=== PATIENT | male | born 1965 | race Caucasian/White ===

== ENCOUNTER 2018-09-03 12:56 | Outpatient (REF) | payer BC, SELFPAY ==
--- NOTE | 2018-09-03 11:30 | SKI_PTH ---
PATIENT: Orion Mccall LOC: [facility] U#:[id number] AGE/SX: 53/M ROOM: RE09/03/[address]: Killian Segovia DO : 1965 BED: DIS: 09/03/2018 SPEC #: [id number] RECD: 09/03/18 13:01 STATUS: TING REMallory #: [id number] SAMUEL: 09/03/18 11:[address]: Killian Segovia DEPT: Surgical Specimen RECD BY: Maite Hobbs Tissues: 1 - SKIN BIOPSY(SHAVE/PUNCH) Procedures: SKIN LEVEL 4 Comments: [id number]
== END 2018-09-03 13:16 ==
LOC: LBN 12:56
PROVIDERS: PCP Emergency Medicine; Visit Provider Emergency Medicine
DX: L82.1 Other seborrheic keratosis (principal)
CPT/HCPCS: 88305

== ENCOUNTER 2019-04-03 11:21 | Outpatient (CLI) | payer BC, SELFPAY ==
[2019-04-03 14:22] LABS: Cholesterol 140 mg/dL (50-200); HDL Cholesterol 36 mg/dL (40-60); LDL CHOLESTEROL 91 mg/dL (<100); Triglyceride 85 mg/dL (30-150)
[2019-04-03 14:30] LABS: Hemoglobin A1C 5.9 % (4.5-6.2)
== END 2019-04-03 11:41 ==
PROVIDERS: PCP Emergency Medicine; Visit Provider Emergency Medicine
DX: E66.9 Obesity, unspecified (principal); E11.9 Type 2 diabetes mellitus without complications
CPT/HCPCS: 36415; 80061; 83721; 83036

== ENCOUNTER 2019-08-04 08:12 | Day surgery (SDC) | payer BC, SELFPAY ==
--- NOTE | 2019-08-04 06:36 | W.COLOREPORT ---
Date of service: 08/04/19 Time of Service: 09:11 Colonoscopy Report Date of procedure: 08/04/19 Pre-op diagnosis general: Hx of polyps Post-op diagnosis procedure note: same Procedure: Colonoscopy with polypectomy Surgeon: Rosalee Wolf Anesthesia proc note operative: other (General/ ASA 2/John Cleary, GADIEL) Estimated blood loss (mL): 3 Pathology: other (cecal P, Ascending P x3, Trannsverse P, Descending P) Complications: None Disposition: same day Indications: Mr. Mccall is a pleasant 54 year old male who was seen for a colonoscopy. He had a colonoscopy in 2016 and had a tubullovillous adenoma. Risks, benefits and complications have been reviewed. Complications include but are not limited to bleeding, pain, perforation, missed small lesion/polyp, sore throat, aspiration and adverse reaction to the medications. Questions were entertained and answered to their satisfaction and they wished to proceed. No guarantees were given or implied. Prep: Miralax/Dulcolax Procedure Start Time: :11 Procedure End Time: :43 Retraction Time: 23 minutes Findings: Multiple small polyps and mild diverticulosis of the descending and sigmoid colon Procedure Description: After informed consent was obtained the patient was taken to the procedure room and placed in a left decubitous position. Monitors were applied and a time out was done. The patients name, date of , procedure, allergies to medications and metal in their body was reviewed. The patient was then sedated. Once sedated and comfortable a rectal exam was done. External exam was normal. Internal exam revealed a normal sphincter tone and no palpable masses. I was unable to feel the prostate. The scope was then introduced and retro-flexed. No internal hemorrhoids, polyps or masses were identified. The scope was then advanced to the cecum without difficulty. The TI and appendiceal orifice were identified. The prep was adequate. The scope was then slowly retracted over 23 minutes back into the rectum. Polyps were removed with cold forceps in the cecum, ascending X3, transverse and descending colon. There was mild diverticulosis noted of the descending and sigmoid colon. The scope was removed and the patient was woken up and taken back to Same day surgery in stable condition. The patient tolerated the procedure well and there were no immediate complications. Follow up: The patient should follow up in 3 years unless they develop changes in bowel habits or other new gastrointestinal complaints.
--- NOTE | 2019-08-04 06:38 | W.PM.DSUDISC ---
Discharge Plan Disposition Patient Disposition: HOME Condition: Good Discharge Details Reason For Visit: Colonoscopy Attending Provider: Rosalee Wolf Primary Care Provider: Killian Segovia Home Meds and New Rx's Prescriptions: Continued indomethacin 50 MG capsule 50 mg PO TID PRNQty: 30 RF: 2 allopurinol 100 mg tablet 100 mg PO DAILY Qty: 90 RF: 3 citalopram 20 mg tablet 20 mg PO DAILY Qty: 90 RF: 3 triamcinolone acetonide 0.5 % cream 1 applic Topical BID PRN Qty: 3 RF: 3 Discontinued polyethylene glycol 3350 17 gram/dose powder 238 g PO ONCE Qty: 238 RF: 0 bisacodyl [Dulcolax (bisacodyl)] 5 mg tablet,delayed release (DR/EC) 5 mg PO ONCE Qty: 4 RF: 0 Discharge Instructions Instructions: Colonoscopy (DC), Diverticulosis (DC), Colorectal Polyps (GEN) Additional Instructions: Findings: Multiple small polyps Diverticulosis Follow up: 3 years Please call if you develop: fevers >101.5 Nausea or Vomiting Abdominal pain that is not transient DAY SURGERY UNIT POST ENDOSCOPY INSTRUCTIONS 1. Because there will be medication in your system for the next 24 hours, you may feel a little sleepy. Your coordination will be affected. Therefore: a. Do not drive or operate dangerous equipment for 24 hours. b. Do not drink alcohol beverages for 24 hours (not even beer). c. Plan to go home and rest for the day. 2. Generally there are no restrictions on your activity after a day or so has gone by, but you may feel a bit fatigued for a few days. 3 After you arrive home you may have a light meal and return to a normal diet as you can tolerate it without feeling sick to your stomach. 4. After surgery, you may feel pain or discomfort. This should be only transient, but if it persists please contact your doctor. 5. If there are any questions regarding the findings of your procedure, please feel free to contact your doctor. 6. If you are unable to contact your doctor with a problem, contact the hospital at [phone]. 7. Continue all your regular medications unless directed otherwise. I understand the above instructions and have no questions. Signature of Patient or Responsible Adult Escort Date/Time Name of Responsible Adult Escort Signature of Nurse Date/Time Activity:: Activity as Tolerated Diet:: High Fiber diet Discharge Orders Discharge Orders: Discharge Order (Routine); Ordered 08/04/19 Ordered By: Rosalee Wolf DS: Diagnosis Discharge Diagnosis (1) Tubulovillous adenoma: Status: Chronic (2) S/P colonoscopy: Status: Acute
[2019-08-04 08:20] VITALS: BP 136/77; PULSE 64; RESP 16; TEMP 36.2; O2SAT 96
--- NOTE | 2019-08-04 08:35 | HOME_ITS ---
Home Ventilator Equipment Home care company [employer] Reason: Obstructive Sleep Apnea Make: Respironics Model: REMStar Mask type: Face mask Mask size: Large Mode: CPAP Settings: Max/min 18/10 Oxygen bleed in (lpm): 0 Condition: Good Date last checked: 08/04/19 Year of last sleep study: Compliance Daily Comments:
[2019-08-04] MEDS: Lactated Ringers 1,000 ML 80 ML IV (08:50)
--- NOTE | 2019-08-04 09:13 | BOWEL_PTH ---
PATIENT: Orion Mccall LOC: [facility] U#:[id number] AGE/SX: 54/M ROOM: RE08/04/[address]: Rosalee Wolf MD : 1965 BED: DIS: 08/04/2019 SPEC #: [id number] RECD: 08/04/19 12:53 STATUS: TING RE #: [id number] SAMUEL: 08/04/19 09:[address]: Rosalee Wolf DEPT: Surgical Specimen RECD BY: Maite Hobbs ENTERED: 08/04/19 12:55 SP TYPE: Bowel OTHR DR: Killian Segovia DO Tissues: 1 - BIOPSY BOWEL 2 - BIOPSY BOWEL 3 - BIOPSY BOWEL 4 - BIOPSY BOWEL Procedures: GROSS AND MICRO LEVEL 4 Comments: [id number]
[2019-08-04 09:50] VITALS: BP 119/70; PULSE 64; RESP 16; TEMP 36.6; O2SAT 98
== END 2019-08-04 11:10 | disposition home or self-care (01) ==
LOC: SUR 08:12
PROVIDERS: PCP Emergency Medicine; Visit Provider Surgery
PROC: 0DJD8ZZ Inspection of Lower Intestinal Tract, Via Natural or Artificial Opening Endoscopic (ICD-10-PCS; CPT 45378; principal; 2019-08-04 09:15)
DX: Z12.11 Encounter for screening for malignant neoplasm of colon (principal); Z86.010 Personal history of colon polyps; D12.2 Benign neoplasm of ascending colon; D12.3 Benign neoplasm of transverse colon; D12.4 Benign neoplasm of descending colon; D12.5 Benign neoplasm of sigmoid colon; K57.30 Diverticulosis of large intestine without perforation or abscess without bleeding; G47.33 Obstructive sleep apnea (adult) (pediatric)
CPT/HCPCS: 45380; 88305

== ENCOUNTER 2021-02-23 16:17 | Outpatient (REF) | payer BC, SELFPAY ==
[2021-02-23 22:32] LABS: ALT 42 U/L (16-63); AST 19 U/L (15-37); Albumin 4.5 g/dL (3.4-5.0); Alkaline Phosphatase 92 U/L (46-116); Anion Gap 9.1 mmol/L (3-11); BUN 19 mg/dL (7-18); Bilirubin, Total 1.5 mg/dL (0.2-1.0); CO2 31.9 mmol/L (21.0-32.0); Calcium 9.3 mg/dL (8.5-10.1); Calculated LDL 82 mg/dL (<100); Chloride 103 mmol/L (98-107); Cholesterol 144 mg/dL (<200); Glucose 99 mg/dL (74-106); HDL Cholesterol 42 mg/dL (40-60); Potassium 4.4 mmol/L (3.5-5.1); Sodium 144 mmol/L (136-145); Total Protein 7.4 g/dL (6.4-8.2); Triglyceride 101 mg/dL (<150)
[2021-02-24 17:32] LABS: PSA, Screening 1.3 ng/mL (0.0-3.5)
== END 2021-02-23 16:18 | disposition home or self-care (01) ==
LOC: LBN 16:17
PROVIDERS: PCP Emergency Medicine; Visit Provider Emergency Medicine
DX: K76.0 Fatty (change of) liver, not elsewhere classified (principal); E66.9 Obesity, unspecified; Z12.5 Encounter for screening for malignant neoplasm of prostate
CPT/HCPCS: 80053; 80061; 84153

== ENCOUNTER 2021-09-13 21:15 | Outpatient (REF) | payer BC, SELFPAY ==
[2021-09-15 10:33] LABS: COVID-19 RT-PCR UVMMC Result Negative (Negative)
== END 2021-09-13 21:16 | disposition home or self-care (01) ==
LOC: LBN 21:15
PROVIDERS: PCP Emergency Medicine; Visit Provider Emergency Medicine
DX: Z20.822 Contact with and (suspected) exposure to COVID-19 (principal)
CPT/HCPCS: U0003

== ENCOUNTER 2022-02-28 18:06 | Outpatient (REF) | payer BC, SELFPAY ==
--- NOTE | 2022-02-28 16:00 | SKI_PTH ---
PATIENT: Orion Mccall LOC: [facility] U#:[id number] AGE/SX: 57/M ROOM: RE02/28/[address]: Killian Segovia DO : 1965 BED: DIS: 02/28/2022 SPEC #: [id number] RECD: 02/28/22 18:18 STATUS: TING REQ #: [id number] SAMUEL: 02/28/22 16:[address]: Killian Segovia DEPT: Surgical Specimen RECD BY: Maite Hobbs ENTERED: 02/28/22 18:19 SP TYPE: ADAN GAMBLE DR: Autumn Connor Tissues: 1 - SKIN BIOPSY(SHAVE/PUNCH) Procedures: SKIN LEVEL 4 Comments: [id number]
== END 2022-02-28 18:07 | disposition home or self-care (01) ==
LOC: LBN 18:06
PROVIDERS: PCP Family Medicine; Visit Provider Emergency Medicine
DX: D23.5 Other benign neoplasm of skin of trunk (principal)
CPT/HCPCS: 88305

== ENCOUNTER 2022-08-04 01:59 | Outpatient (CLI) | payer BC, SELFPAY ==
--- OUTSIDE RECORDS SUMMARY | 2022-08-04 02:04 | XMS_ITS | Encounter Summary ---
:1965 Author Organization [facility] Address [address] [place] [address] Care Team Providers Name Role Phone Killian Segovia DO Primary Care Provider Encounter Details Date Type Department Care Team Description 08/04/2019 Hospital Encounter [facility], Provider, [facility] [address] [facility] [phone] [place] [address] (Work) [phone] Social History Tobacco Use Types Packs/Day Years Used Date Never Assessed Sex Assigned at Date Recorded Not on file documented as of this encounter Discharge Disposition Disposition Code Departure Means Destination Home or Self Fpc documented in this encounter Plan of Treatment Not on filedocumented as of this encounter Visit Diagnoses Not on filedocumented in this encounter Care Teams Bartenders Relationship Specialty Start Date End Date Killian Segovia DO PCP - General 12/03/12 02/16/[address] [place]ET [place]OTH[place] [id number] documented as of this encounter
--- OUTSIDE RECORDS SUMMARY | 2022-08-04 02:04 | XMS_ITS | Encounter Summary ---
:1965 [place] [address] Care Team Providers Name Role Phone Killian Segovia DO Primary Care Provider Reason for Visit Auth/Cert Specialty Diagnoses / Procedures Referred By Contact Refer red To Contact Diagnoses Asymptomatic varicose veins of unspecified lower extremity Varicose veins of unspecified lower extremity with pain varicose vein Procedures PRO ENDOVENOUS RF, 1ST VEIN PRO PHLEB VEINS - EXTREM - TO 20 ENDOVENOUS ABLATION THERAPY OF INCOMPETENT VEIN, EXTREMITY, FIRST VEIN STAB PHLEBECTOMY ASHLEY VEINS 1 EXTREMITY 10-20 INCISIONS Referral ID Status Reason Start Date Expiration Date Visits Requ ested Visits Authorized [id number] 1 Encounter Details Date Type Department Care Team Description 09/29/2016 Surgery Main Operating Room Jose Alejandro rn D, MD ENDOVENOUS ABLATION [facility] TH[facility]APY OF INCOMPETENT Hospital VEIN, EXTREMITY, [facility] VASCULAR SURG ALVINA VEIN (WRVU 5.3) [place] [address] [place] [address] [phone] Social History Tobacco Use Types Packs/Day Years Used Date Never Smoker Smokeless Tobacco: Never Used Alcohol Use Standard Drinks/Week Comments Yes 6 (1 standard drink = 0.6 oz pure alcoho l) Sex Assigned at Date Recorded Not on file documented as of this encounter Last Filed Vital Signs Vital Sign Reading Time Taken Comments Blood Pressure 150/87 09/29/2016 11:00 AM EST Pulse 80 09/29/2016 11:00 AM EST Temperature 36.3 ??C (97.3 ??F) 09/29/2016 10:22 AM EST Respiratory Rate 22 09/29/2016 11:00 AM EST Oxygen Saturation 97% 09/29/2016 11:00 AM EST Inhaled Oxygen Concentration - - Weight 139.3 kg (307 lb 1.6 oz) 09/29/2016 7:21 AM EST Height 182.9 cm (6') 09/29/2016 7:21 AM EST Body Mass Index 41.65 09/29/2016 7:21 AM EST documented in this encounter Discharge Instructions Discharge Elvia Black RN - 09/29/2016 10:40 AM EST POST ANESTHESIA INSTRUCTIONS Go home, rest, use caution on stairs. Change positions slowly. Do not smoke if you are alone. Diet light to regular as tolerated today. If nausea occurs start with clear liquids and progress slowly. No driving, operating machinery, alcoholic beverages and no important decisions for 24 hours. Monitor IV site for signs and symptoms of infection: increasing redness, swelling, foul drainage, ifoccurs contact M.D. Patients who have had endotrachial tubes (this tube, used by anesthesia department, is passed down your throat after you are asleep, to ensure safe air passage during your operation). A sore throat is normal due to the tube. Cold liquids or soothing lozenges will help ease the discomfort. The generalized muscle aches are due to the medication given to you just before the tube is inserted. As the medication wears off, you may develop muscle soreness, which usually goes away in 12-24 hours. Patient InstructionsRoshni Villareal MD - 09/29/2016 10:28 AM EST Instructions Following Varicose Vein Surgery Wound Care: Bedrest for 4-6 hours following surgery once you get home with legs at level of heart orelevated. Then please get out of bed and walk. Keep on KERON wraps for the next 2 days (feel free to take off KERON if it too tight and change as needed). No bathing for 2 days. Keep legs elevated or at level of heart as much as possible over the next 3-5 days. Walk as you would normally. Sunday you should take off KERON wrap and gauze, may shower, and pat dry immediately following. The incisions are closed with disappearing suture and steri strips. The strips will fall off in the shower on their own. You may wash the incisions with soap and water and pat dry. Activity: YOU SHOULD WALK STARTING THE EVENING AFTER SURGERY. When you are sitting try to prop leg(s) up on pillows and/or lie down as much as possible (thsi will limit swelling). No vigorous activity (such as jogging) for at least 2-4 weeks or until cleared to do so at you follow-up appointment. Call Doctor for: Please call if you notice worsening redness or drainage from incision(s) lasting longer than 5 days after your surgery, any foul-smelling drainage from the incision, pain not controlled by pain medications, or for any fevers greater than 101.3 F. Pain Medication: No driving for 8 hours after any dose of opioid pain medication if one was presecibed for you. You may use ibuprofen (motrin, advil) in addition to this medication if your pain is not totally controlled. Follow-up: You will have a follow-up appointment scheduled with Haritha Colón RN/Messi Alejandro MD in 4 weeks. Appointment will be mailed to you and/or you may be called with a date and time from the clinic. If you do not hear from the clinic within 1 week of your appointment please call to confirm date and time of your appointment. Please put sunscreen over the incisions if in the sun; the incisions will riojas differently than the rest of your skin and may become dark if you do not apply sunscreen. We will see you Sunday at 4pm for your ultrasound study. If you have any bleeding through the dressings please take down dressing and replace KERON wrap. For any problems or questions please call [phone] For issues on weeknights after 5pm and weekends please call [phone] and ask for the Vascular Fellow explosion welder. AGUSTIN Reyes, chief engineer's helper Nurse Clinician documented in this encounter Medications at Time of Discharge Medication Sig Dispensed Refills Start Date End Date allopurinol (ZYLOPRIM) Take 100 mg by mouth 0 100 mg Tablet daily. citalopram (CELEXA) 10 Take 10 mg by mouth 0 mg Tablet daily. triamcinolone (KENALOG) Apply topically 2 0 0.1 % Cream times daily. indomethacin (INDOCIN) 0 08/23/2005 50 mg capsule acetaminophen (TYLENOL) Take 2 tablets by 100 tablet 2 09/2909/29/2017 325 mg Tablet mouth every 4 hours as needed for Pain. oxyCODONE (ROXICODONE) 5 Take 1 tablet by 15 tablet 0 09/2910/26/2016 mg Tablet mouth every 4 hours as needed for Pain. documented as of this encounter H&P Notes Roshni Villareal MD - 09/29/2016 7:46 AM EST H&P Update Please see Dr. Alejandro's clinic note from 09/20/16. In brief this is a healthy 51 year old male with left lower extremity varicose veins, that cause himaching/throbbing. 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 No hx of DVT or family clotting disorder. Duplex shows reflux in the left GSV. Physical Exam Vitals: 09/29/16 0721 BP: 129/85 Pulse: 61 Resp: 16 Temp: 36.8 ??C (98.2 ??F) Genl: well appearing male, obese Cards: RRR normal S1 S2 Pulm: lungs clear Ext: warm LLE: protuberant varicosities at medial knee/calf, palpable GSV No erythema Plan for Left GSV ablation and stab phlebectomy. Risks include bleeding, infection, injury to surrounding structures, DVT, scars, bruising, recurrence of varicose veins. Pt understands and wishes to proceed. documented in this encounter Miscellaneous Notes Op Note - Roshni Villareal MD - 09/29/2016 10:20 AM EST [facility] [place] Patient Name: Orion Santo : [id number] MR#: [id number] Case Date: 09/29/2016 Surgeon: Surgeon(s) and Role: * Messi Alejandro MD - Primary * Roshni Villareal MD - Resident-Surgeon Eliezer Preoperative diagnosis: Left lower extremity varicose veins Morbid obesity (BMI 41.65) Obstructive sleep apnea Postoperative diagnosis: Left lower extremity varicose veins sp L GSV ablation and stab phlebectomy Morbid obesity (BMI 41.65) Obstructive sleep apnea Procedure(s): 1. ENDOVENOUS ABLATION THERAPY OF INCOMPETENT VEIN, EXTREMITY, FIRST VEIN 2. STAB PHLEBECTOMY ASHLEY VEINS 1 EXTREMITY <10 INCISIONS Findings: Very large diameter tortuous varicosities below the knee GSV ablated using RF ablation, ablation confirmed with US and no DVT seen in the femoral vein Varicosities at proximal calf/distal thigh excised with stab phlebectomy (6 stabs) Anesthesia: General 50cc Tumescent used Estimated Blood Loss: 40cc Specimens removed during surgery: None Drains: none Surgical Closure: Primary Closure - closure of ALL tissue levels during the original surgery regardless of wires, wickes, drains, or other devices extruding through the incision Disposition: awakened from anesthesia, extubated and taken to the recovery room in a stable condition, having suffered no apparent untoward event. Condition: doing well without problems (Please see the Surgical Encounter Summary for any Implant and Specimen details pertinent to this patient.) HPI/Surgical Indications: 51M with reflux in left GSV and protuberant varicosities. No relief with compression stockings. Varicose veins associated w pain/swelling/throbbing. Procedure Description: The patient was properly identified in the pre-operative holding area. After discussions of the risks and benefits, operative consent was obtained. The patient was brought to the operating room. The patient was prepped and draped in the usual sterile fashion. A time-out was performed by the attending surgeon confirming the patient, the intended procedure, the side of intervention and equipment needed. General anesthesia was induced. Pre operative ancef was administered. ? Under ultrasound guidance the left great saphenous vein was identified along its course from the saphenofemoral junction to below the knee. A location approximately at the level just below the knee waschosen for accessing the great saphenous vein via micropuncture kit; the vein was cannulated with a wire over which a 7 F sheath was introduced. A garrido wire was advanced to the saphenofemoral junction. A Tumescent solution was injected along the path of the GSV below the skin and tracking along the fascial layer. The entire GSV was noted to lay at least 1 cm below the skin. The VNUS catheter advanced to the level of 2.5 cm below the saphenofemoral junction within the great saphenous vein. The VNUSdevice was the utilized for RF ablation per standard protocol, with two pulses at the level just below the saphenofemoral junction, and at two additional points distally along the course of the GSV. Total treatment length of approximately 30 cm and 5 cycles. Completion ultrasound revealed no flow in the GSV, and a compressible CFV with normal augmentation. The GSV sheath access was removed and pressure held. ? We then turned our attention to the previously marked varicosity clusters below the knee. Incisions were made on the left calf and thigh with an 11 blade (a total of 6 stabs made). The veins were followed along their course with a snap and then avulsed or tied with 3-0 vicryl. Hemostasis achieved withlocal pressure. The incisions were closed with 4-0 monocryl and overlying steri- strips. The leg was then wrapped with a kerlex and KERON wrap from the foot to the thigh. ? Dr. Alejandro was scrubbed and present for all critical portions of the case. There were no complications. ?? Infection Bundle used? N/A (pre op ancef given) Associated attestation - Messi Alejandro MD - 09/29/2016 10:29 AM EST Attestation: Case Date: 09/29/2016 I was present and I participated during the entire procedure (does not need to include opening and closing). Messi Alejandro MD 09/29/2016 documented in this encounter Plan of Treatment Not on filedocumented as of this encounter Procedures Procedure Name Priority Date/Time Associated Diagnosis Comme nts STAB PHLEBECTOMY ASHLEY Routine 09/29/2016 9:54 AM Varicose vein of leg VEINS 1 EXTREMITY <10 EST Varicose veins of l eg INCISIONS with pain, unspecified laterality STAB PHLEBECTOMY ASHLEY 09/29/2016 8:23 AM Varicose vein of leg VEINS 1 EXTREMITY <10 EST Varicose veins of l eg INCISIONS (WRVU *) with pain, unspecified laterality ENDOVENOUS ABLATION 09/29/2016 8:23 AM Varicose vein of leg THERAPY OF INCOMPETENT EST Varicose veins of leg VEIN, EXTREMITY, FIRST with pain, unspeci fied VEIN (WRVU 5.3) laterality documented in this encounter Results Duplex for DVT, Leg, Unilat (10/02/2016 4:00 PM EST) Component Value Ref Test Analysis Performed At [facility] Range Method Time Signature VB Text Department: Vascular Surgery Lab [facility] Report Patient: [id number] (ORION SANTO) CPT: 61641 ICD10: I82.812;I83.812 Referring Physician: MESSI ALEJANDRO ?? Phone: Indications: LEFT venous ins ufficiency, s/p VNUS (09/29/2016), ? DVT/successful GSV ablation ICD10 Diagnosis Code: I83.812, I82.812 LEFT: The great saphenous vein is thromb osed from the level of the knee to the saphenofemoral junction without evidence of extension into t he deep system (CFV). Otherwise, patent common femoral vein and popliteal vein wit h spontaneous, respirophasic Doppler wavefo neil that respond normally to augmentation maneuvers. The common femoral vein, femoral vein th rough the thigh and popliteal vein are fully compressible. Interpretation: LEFT: Occlusive superficial vein (GSV) thrombus without evidence of extension into the deep system (CFV). No evidence of femoral-popliteal deep venous thrombosis. Findings consistent with successful ablation of the GSV. Comparison: ??No previous study in our vascular lab da tabase for comparison. Electronically Signed by: VANESSA BUTTERFIELD on 2016-10-02 07:36: 46 PM VB Text End of Report [facility] Report Specimen (Source) Anatomical Collection Method Collection Time Re ceived Time Location / / Volume Laterality 10/02/2016 4:00 PM EST Messi Alejandro MD VASCULAR ORDERABLES Performing Organization Address City/State/ZIP Code Phon e Number [facility] documented in this encounter Visit Diagnoses Diagnosis Varicose veins of leg with pain, unspeci fied laterality Varicose veins of leg with pain, left Varicose veins of leg with pain, unspeci fied laterality documented in this encounter Administered Medications Inactive Administered Medications - up to 3 most recent administrations Medication Order MAR Action Action Date Dose Rate Site flu vacc (5-64 yrs) (PF) Given 09/29/2016 11:09 AM 0.5 mLs Left Deltoid (AFLURIA) IM injection 0.5 EST mL 0.5 mL, Intramuscular, PRIOR TO DISCHARGE, 1 dose, Starting on Sun09/29/16 at 1115, Until Sun09/29/16 at 1109, Per Protocol, Recovery (Recovery-Hospital Unit), STAT lactated ringers infusion 1,000 New Bag 09/29/2016 8:03 AM EST 1,000 mLs 100 mL/hr mL 1,000 mL, at 100 mL/hr, Intravenous, CONTINUOUS, Starting on Sun09/29/16 at 0730, Until Sun09/29/16 at 1646, Day of Surgery (Day of Procedure) oxyCODONE (ROXICODONE) immediate release tablet Given 09/29/2016 2:04 PM EST 5 mg 5 mg 5 mg, Oral, EVERY 4 HOURS PRN, Starting on Sun09/29/16 at 1030, Until Sun09/29/16 at 1848, Pain, Routine documented in this encounter Active and Recently Administered Medications Times are shown in EST. Scheduled Medication Order 09/27/2016 09/28/2016 09/29/2016 ceFAZolin (ANCEF) 3g in dextrose 5% 100 mL (COMPLETED) 0831 (Given - Provider: Bryce Cedillo MD) 3 g, Intravenous, ONCE, 1 dose, 09/19 at 0730, Administer over 30 Minutes, Redose every 3 hours if CrCl is greater than 20. Redose every 8 hours if CrCl is less than 20., Day of Surgery (Day of P rocedure), Indication for (Active or Suspected): Prophylaxis Continuous Medication Order 09/27/2016 09/28/2016 09/29/2016 lactated ringers infusion 1,000 mL 0803 (New Bag - Provider: Linnea Blevins RN) 1,000 mL, at 100 mL/hr, Intravenous, CON TINUOUS, Starting Sun09/29/16 at 0730, Until Sun09/29/16 at 1646, Day of Surgery (Day of Procedure) PRN Medication Order 09/27/2016 09/28/2016 09/29/2016 flu vacc (5-64 yrs) (PF) (AFLURIA) IM injection 0.5 mL (COMPLETE D) 1109 (Given - Provider: Elvia Barrett, RN) 0.5 mL, Intramuscular, PRIOR TO DISCHARG E, 1 dose, Starting on Sun09/29/16 at 1115, Until Sun09/29/16 at 1109, Per Protocol, Recovery (Recovery-Hospital Unit), STAT lidocaine (XYLOCAINE) 10 mg/mL (1 %) injection 3 mg 3 mg (0.3 mL), Subcutaneous, ONCE PRN, 1 dose, Starting Sun09/29/16 at 0713, Until Sun09/29/16 at 1646, for discomfort with PIV insertion, Day of Surgery (Day of Procedure), Routine oxyCODONE (ROXICODONE) immediate release tablet 5 mg 1404 (Given - Provider: Elvia Barrett, RN) 5 mg, Oral, EVERY 4 HOURS PRN, Starting Sun09/29/16 at 1030, Until Sun09/29/16 at 1848, Pain, Routine sodium chloride 0.9 % flush 5-20 mL 5-20 mL, Intravenous, EVERY 1 MIN PRN, S tarting Sun09/29/16 at 0713, Until Sun09/29/16 at 1646, flush, Flush pertains to all indwelling lines. Flush per protocol found in the job aid using the link pr ovided on this medication record., Day of Surgery (Day of Proced ure), Routine documented in this encounter Care Teams Vision Rehabilitation Therapist Relationship Specialty Start Date End Date Killian Segovia DO PCP - General Family Medicine 05/04/16 [address] [place] [address] documented as of this encounter
--- OUTSIDE RECORDS SUMMARY | 2022-08-04 02:04 | XMS_ITS | Encounter Summary ---
:1965 [place] [address] Care Team Providers Name Role Phone Killian [...] Expiration Date Visits Requ ested Visits Authorized [id number] 1 1 Encounter Details Date Type Department Care Team Description 09/29/2016 Anesthesia Event Main Operating Room Hayes Seo MD [facility] [place] [address] [facility] Genia Cedillo MD [facility] [place] [address] [place] [address] Anesthesia Record Procedure Summary Procedure Name Responsible Anesthesia Start Anesthesia Stop Anesthesiologist Time Time ENDOVENOUS ABLATION Hayes Ramírez MD 09/29/16 0823 1024 THERAPY OF INCOMPETENT VEIN, EXTREMITY, FIRST VEIN (WRVU 5.3) (Left Leg) Events Date Time Event Comment 09/29/2016 0756 0823 AN Verify 0823 Start 0823 An Start Data 0828 An Induction 0829 An Intubation 0834 Anesthesia Ready 1001 Break/Relief In GENIA EM MD 1005 Extubation/LMA Out 1016 an stop data 1024 Recovery or ICU Handoff Patient care was transferred to the destination unit staff after review of the patient's medica l history, current anesthetic/surgi aminata status and plan, according to the Provider Handoff Checklist. 1024 Stop Name Total Midazolam 2 mg fentaNYL 100 mcg Propofol 450 mg ePHEDrine 20 mg Ondansetron 4 mg Dexamethasone 4 mg ceFAZolin (ANCEF) 3g in dextrose 5% 100 mL 2 g Dexmedetomidine 28 mcg Agents Name O2 Air N2O Sevoflurane (et) Blood No blood administrations on file. Lines, Drains, and Airways Type Details Placement Removal PIV 09/29/16; 0802; metacarpal 09/29/16 0802 by Sherly acosta, 09/29/16 1646 by vein (top of hand), left; AUREA Shukla Marcia L, RN [id number] catheter system; 20 gauge, 1 in length; intradermal injection, tolerated well, age-appropriate response; no longer indicated, removed per policy/procedure, site care per policy/procedure, catheter/device intact; 09/29/16; 1646 Supraglottic Mask Ventilation: Not 09/29/16 0829 by 09/29/16 1005 by Attempted (0); LMA Type: Genia Cedillo MD Caramiciu, Justin A, iGel; LMA Size: 5; Inserted MD by: aramis Incision 09/29/16; 0900; leg; 09/29/16 0900 by Latosha, 1715 by laparoscopic puncture; AUREA Marino D ierdre L 07/17/22 (LDA cleanup utility RA#[id number]); 1715 (LDA cleanup utility RA#[id number]) documented in this encounter Social History Tobacco Use Types Packs/Day Years Used Date Never Smoker Smokeless Tobacco: Never Used Alcohol Use Standard Drinks/Week Comments Yes 6 (1 standard drink = 0.6 oz pure alcoho l) Sex Assigned at Date Recorded Not on file documented as of this encounter OR Notes Anesthesia Postprocedure Evaluation - Genia Cedillo MD - 09/29/2016 10:24 AM EST [facility] Department of Anesthesiology Post-procedure Note Patient: Orion Mccall Procedure Summary Date Anesthesia Start Anesthesia Stop Room / Location 09/29/16 0823 1024 [facility] OR 15 / [facility] MAIN OR Procedure Diagnosis Surgeon Responsible Provider ENDOVENOUS ABLATION THERAPY OF INCOMPETENT VEIN, EXTREMITY, FIRST VEIN (Left Leg); STAB PHLEBECTOMYVAR VEINS 1 EXTREMITY <10 INCISIONS (Left Leg) Varicose vein of leg; Varicose veins of leg with pain, unspecified laterality (varicose vein, symptomatic varicose vein) Messi Alejandro MD Sidash, Stanislav, MD All Anesthesia Providers: Anesthesiologist: Hayes Ramírez MD Steam Drier Operator: Genia Cedillo MD Last (1hr) Vitals: BP Temp Pulse Resp SpO2 Patient Location: PACU/[facility] Level of Consciousness: Conscious but Sleepy Pain Management: Satisfactory Analgesia PONV: None Cardiovascular Status: At Baseline Respiratory Status: At Baseline Postoperative Fluid Status: Intravascular EUvolemia Possible Anesthetic Complications: NONE apparent at time of evaluation Final Primary Anesthesia Type: General (The anesthetic type performed was the same as planned.) Comments: Anesthesia Preprocedure Evaluation - Hayes Ramírez MD - 09/28/2016 2:47 PM EST Pre-Anesthesia Evaluation for: Orion franco 51 y.o. male. Procedure(s): ENDOVENOUS ABLATION THERAPY OF INCOMPETENT VEIN, EXTREMITY, FIRST VEIN STAB PHLEBECTOMY ASHLEY VEINS 1 EXTREMITY 10-20 INCISIONS Patient Active Problem List Diagnosis ??? Varicose veins of leg with pain Past Medical History Diagnosis Date ??? Varicose veins of leg with pain 05/04/2016 No past surgical history on file. Social History Substance Use Topics ??? Smoking status: Never Smoker ??? Smokeless tobacco: Never Used ??? Alcohol use Yes Comment: occassional History Drug Use No Allergies Allergen Reactions ??? Meperidine Hcl Medications: MAR and/or home medications have been reviewed. Physical Exam: There were no vitals filed for this visit. There is no height or weight on file to calculate BMI. Airway Assessment: Mallampati: I TM distance: >3 FB Neck ROM: full Cardiovascular Assessment: cardiovascular exam normal Pulmonary Assessment: pulmonary exam normal Dental Assessment: - normal exam Misc Assessment: Anesthesia Plan: ASA 2 general, with a(n) intravenous induction Orion Mccall is a 51 year old male presenting with [place] for endovenous vein ablation for varicose veins of the left lower extremity. Patient is otherwise healthy. Meds: allopurinol, citalopram, kenalog, indomethacin Allergies: meperidine SH: Occ EtOH Plan GA with LMA/ETT back up Propofol gtt Versed pre op Informed Consent: Anesthetic plan and risks discussed with patient. Use of blood products discussed with patient who. Plan discussed with resident. PAT Staff Note documented in this encounter Plan of Treatment Not on filedocumented as of this encounter Visit Diagnoses Not on filedocumented in this encounter Administered Medications Inactive Administered Medications - up to 3 most recent administrations Medication Order MAR Action Action Date Dose Rate Site ceFAZolin (ANCEF) 3g in dextrose 5% Given 09/29/2016 8:31 AM EST 2 g 100 mL 3 g, Intravenous, ONCE, 1 dose, On Sun09/29/16 at 0730, Administer over 30 Minutes, Redose every 3 hours if CrCl is greater than 20. Redose every 8 hours if CrCl is less than 20., Day of Surgery (Day of Procedure), Indication for (Active or Suspected): Prophylaxis dexamethasone (DECADRON) injection Given 09/29/2016 8:47 AM EST 4 mg PRN, Starting on Sun09/29/16 at 0847, Until Sun09/29/16 at 1024, Anesthesia Intra-op, Routine dexmedetomidine (PRECEDEX) injection Given 09/29/2016 9:38 AM EST 8 mcg PRN, Starting on Sun09/29/16 at 0850, Until Sun09/29/16 at 1024, Anesthesia Intra-op, Routine Given 09/29/2016 8:50 AM EST 20 mcg ePHEDrine 5 mg/mL multi-dose injection Given 09/29/2016 9:09 AM EST 10 mg PRN, Starting on Sun09/29/16 at 0858, Until Sun09/29/16 at 1024, Anesthesia Intra-op, Routine Given 09/29/2016 8:58 AM EST 10 mg fentaNYL 50 mcg/mL multi-dose injection Given 09/29/2016 8:54 AM EST 50 mcg PRN, Starting on Sun09/29/16 at 0840, Until Sun09/29/16 at 1024, Pain, Anesthesia Intra-op, Routine Given 09/29/2016 8:40 AM EST 50 mcg midazolam (PF) (VERSED) 1 mg/mL multi-dose Given 09/29/2016 8:27 AM EST 2 mg injection PRN, Starting on Sun09/29/16 at 0827, Until Sun09/29/16 at 1024, Sleep, Anesthesia Intra-op, Routine ondansetron (ZOFRAN) injection Given 09/29/2016 10:08 AM EST 4 mg PRN, Starting on Sun09/29/16 at 1008, Until Sun09/29/16 at 1024, Nausea, Anesthesia Intra-op, Routine propofol (DIPRIVAN) 10 mg/mL bolus injection Given 6 9:38 AM EST 50 mg (Anesthesia) PRN, Starting on Sun09/29/16 at 0828, Until Sun09/29/16 at 1024, Anesthesia Intra-op Given 09/29/2016 8:40 AM EST 100 mg Given 09/29/2016 8:28 AM EST 300 mg documented in this encounter Care Teams Enlisted Advisor Relationship Specialty Start Date End Date Killian Segovia DO PCP - General Family Medicine 05/04/[address] [place] [address] documented as of this encounter
--- OUTSIDE RECORDS SUMMARY | 2022-08-04 02:04 | XMS_ITS | Encounter Summary ---
:1965 Author Organization [facility] [address] Care Team Providers Name Role Phone Killian Segovia DO Primary Care Provider Encounter Details Date Type Department Care Team Description 05/24/2016 Telephone Vascular Surgery at [facility] [place] [address] Social History Tobacco Use Types Packs/Day Years Used Date Never Smoker Sex Assigned at Date Recorded Not on file documented as of this encounter Miscellaneous Notes Telephone Encounter - Kaylee Sidhu - 05/24/2016 11:32 AM EDT 6-8 week f/u w/- to discuss surgery (REMA LUQUE). LVM on home # on 05/05/16. [facility] LVM on home # on 05/15/16. [facility] Mailed reminder letter and removed recall on 05/24/16. [facility] documented in this encounter Plan of Treatment Not on filedocumented as of this encounter Visit Diagnoses Not on filedocumented in this encounter Care Teams Ethical Hacker Relationship Specialty Start Date End Date Killian Segovai DO PCP - General Family Medicine 05/04/[address] [place] [address] documented as of this encounter
--- OUTSIDE RECORDS SUMMARY | 2022-08-04 02:04 | XMS_ITS | Encounter Summary ---
:1965 Author Organization [facility] Address [address] [place] [address] Care Team Providers Name Role Phone Killian Segovia DO Primary Care Provider Encounter Details Date Type Department Care Team Description 05/03/2016 Hospital Encounter [facility] Unknown, Provider, [facility] [address] [facility] [phone] [place] [address] (Work) [phone] Social History Tobacco Use Types Packs/Day Years Used Date Never Assessed Sex Assigned at Date Recorded Not on file documented as of this encounter Discharge Disposition Disposition Code Departure Means Destination Home or Self Snf documented in this encounter Plan of Treatment Not on filedocumented as of this encounter Visit Diagnoses Not on filedocumented in this encounter Care Teams [employer] Relationship Specialty Start Date End Date Killian Segovia DO PCP - General 12/03/12 02/16/[address] [place] [id number] documented as of this encounter
--- OUTSIDE RECORDS SUMMARY | 2022-08-04 02:04 | XMS_ITS | Encounter Summary ---
:1965 Author Organization [facility] [place] [address] Care Team Providers Name Role Phone Killian Segovia DO Primary Care Provider Reason for Visit Reason Comments Varicose Veins pt here for f/u varicose vei n Encounter Details Date Type Department Care Team Description 09/20/2016 Office Visit Vascular Surgery at [facility] Var icose veins of leg with pain, unspecified laterality; [facility] Varicose vein of leg [facility] [address] [place] SURGERY [id number] [place] [address] [phone] Social History Tobacco Use Types Packs/Day Years Used Date Never Smoker Sex Assigned at Date Recorded Not on file documented as of this encounter Last Filed Vital Signs Vital Sign Reading Time Taken Comments Blood Pressure 138/77 09/20/2016 2:59 PM EDT Pulse 63 09/20/2016 2:59 PM EDT Temperature - - Respiratory Rate 18 09/20/2016 2:59 PM EDT Oxygen Saturation - - Inhaled Oxygen Concentration - - Weight 136.1 kg (300 lb) 09/20/2016 2:59 PM EDT Height 182.9 cm (6') 09/20/2016 2:59 PM EDT Body Mass Index 40.69 09/20/2016 2:59 PM EDT documented in this encounter Progress Notes Messi Alejandro MD - 09/20/2016 3:00 PM EDT Reason for visit: LLE varicose veins Interval history: Mr. Mccall is a 51 yo male who returns 4 months after being seen by Haritha Colónin our offices for LLE varicose veins. He has been wearing compression stockings and finds no reliefin his symptoms. He has aching and tenderness in the large varicosities along the left medial thigh toward the end of the day. 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 He denies any bleeding, phlebitis, ulcers or claudication, rest pain, or neurologicalchanges. He does not smoke, tries to be active and has no h/o coronary disease. He is able to climb two flights of stairs without developing angina, YANEZ or other symptoms. He is obese. He had prior inguinal hernia repairs and no complications with surgery or anesthesia. Physical Exam: General: NAD, appears well, obese Neuro: Alert and oriented, motor sensory grossly intact Ear, Nose, Throat: No masses or lesions Skin: No lesions or abnormal markings Lungs: CTA Heart: RRR Abd: Soft, NT, ND, no palpable pulsatile masses, obese, unable to feel aorta due to habitus Extremity - [place], warm, no ulceration, brisk capillary refill, no edema. The left GSV is prominent and easily palpable. Arising from it below the knee are several large and tortuous varicosities. He has no posterior varicosities. 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 He has diminished hair growth in this medial cordova GSV distribution. The right leg has several small geniculate superficial varicosities. Vascular: R L Carotid 2/2 bruit (n) 2/2 bruit (n) Radial 2/2 2/2 Femoral 2/2 2/2 Popliteal 2/2 2/2 DP 2/2 2/2 PT 2/2 2/2 Studies: Venous Incompetence Study today: Left ? Reflux?Diameter (mm) ??Depth (mm) ?? Common Femoral Vein ?Reflux ? Femoral Vein ? Competent ? Popliteal ?Competent ? Posterior Tibial Vein ??Competent ? GSV, Near SFJ ?Reflux ?13.2 ?35.0 ?? GSV, Proximal Thigh ?Reflux ?19.9 ? 9.4 ?? GSV, Mid Thigh ? Reflux ? 9.2 ? 7.7 ?? GSV, Distal Thigh ?Reflux ? 8.9 ? 2.8 ?? GSV, ??Knee ? Reflux ? 9.6 ? 3.2 ?? GSV Prox Calf ?Reflux ?13.0 ? 2.3 ?? GSV, Mid Calf ?Reflux ?18.0 ? 2.9 ?? GSV, Ankle ? Reflux ? 5.9 ? 4.3 ?? SSV ?Reflux ? Interpretation: Left: Superficial vein valvular incompetence: There is reflux from the CFV into the GSV extending from the groin to the ankle (>5 seconds duration). There is also reflux in the SSV in the mid to distal calf. No significant reflux in the deep veins distal to the CFV. No evidence of deep or superficial vein thrombus. The GSV exits the fascia in the mid thigh and is very tortuous and large from the knee to the mid calf. 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 His varicosities and skin changes are in the GSV distribution and directly attributable to his superficial reflux disease. We discussed the risks and benefits of saphenous ablation, stripping, and phlebectomy of the varicosities. He understands these and wishes to proceed with surgery to remove the symptomatic varicosities. I underlinedthe importance of ongoing compression therapy following his repair to prevent further sequelae. Willplan for venous ablation and phlebectomy next week. Messi Alejandro MD, MS Section of Vascular Surgery documented in this encounter Miscellaneous Notes Addendum Note - Jeffrey Salvador RN - 09/21/2016 8:36 AM EDT Addended by: JEFFREY SALVADOR on: 09/21/2016 08:36 AM Modules accepted: Orders, SmartSet documented in this encounter Plan of Treatment Not on filedocumented as of this encounter Procedures Procedure Name Priority Date/Time Associated Diagnosis Comme nts ENDOVENOUS ABLATION Routine 09/21/2016 8:34 AM Varicose veins of leg THERAPY OF INCOMPETENT EDT with pain, unspeci fied VEIN, EXTREMITY, FIRST lateralit y VEIN Varicose vein of leg documented in this encounter Visit Diagnoses Diagnosis Varicose veins of leg with pain, unspeci fied laterality documented in this encounter Care Teams Social Science Teacher Relationship Specialty Start Date End Date Killian Segovia DO PCP - General Family Medicine 05/04/[address] [place] [address] [address] [place] [address] documented as of this encounter
--- OUTSIDE RECORDS SUMMARY | 2022-08-04 02:04 | XMS_ITS | Encounter Summary ---
:1965 Author Organization [facility] Address [address] [place] [address] Care Team Providers Name Role Phone Unavailable Primary Care Provider Unavailable Encounter Details Date Type Department Care Team Description 11/29/2012 Results Only [facility] Tash Segovia, DO Laboratory Services - [address] [place] [address] [address] [facility] [place] [address] [phone] Social History Tobacco Use Types Packs/Day Years Used Date Never Assessed Sex Assigned at Date Recorded Not on file documented as of this encounter Plan of Treatment Not on filedocumented as of this encounter Procedures Procedure Name Priority Date/Time Associated Diagnosis Comme [facility] SURGICAL PATHOLOGY Routine 11/29/2012 7:58 EST Re sults for this procedure are i n the results section. documented in this encounter Results SURGICAL PATHOLOGY (11/29/2012 7:58 EST) Pathology Report: SURGICAL PATHOLOGY REPORT [facility] Reports generated via electronic interface contain kel ginal data; LAB however they are lacking the format of the original re port. Caution should be taken when reading/interpreting unfo rmatted reports. Name: ? ORION SANTO ? Accession #: ? [id number] ? : ? 1965 (Age: 47) ??M ? Collect Date: ? 11/29/2012 ? Location: ? [facility] ? Receive Date: ? 013 ? Provider: NAS SEGOVIA DO Copy to: ? Final Pathologic Diagnosis: A. ?Skin of scapula, left, punch biopsy: 1. ?Dermatofibroma. ? - Lesion extends to peripheral edge and base of biopsy specimen. ? B. ?? Skin of ear, right posterior, punch biops y: ?1. ?? Seborrheic keratosis, pigmented. Microscopic Description: (A) ?There is irregular epidermal hyperpl anshu with basal hyperpigmentation. ??Within the dermis, there is a spindle cell proliferation accompanied by histiocytes. ??The spindle cells have plump nuclei that vary to a mild degree in size and shape. ??The proliferation is associated with thick bundles of collagen (collagen trapping) and areas of sclerosis. (B) ?The stratum corneum is thicken ed by compact and basketweave orthokeratosis with formatio n of horn pseudocysts. ??The epidermis is acanthotic with formation of broad and anastomosing trabeculae. ? ?The trabeculae are composed of basaloid keratin ocytes with round uniform nuclei. ??The keratinocytes have a variable amount of melanin pigment. ??(Dr. Bart armenta)/[facility] Document reviewed and electronically signed by: TAISHA CORTEZ MD Report ??Date: 12/02/2012 17:15 By the signature above, the attending physician certif ies that he/she has personally conducted a gross and/or microscopic examin ation of the described specimens and rendered or confirmed the above diagnosi s. Specimen(s) Received: A. ?2.0 mm punch L scapula B. ? 2.0 mm punch posterior to R ear Clinical History: ? A. 1.0 cm erythematous papule; B. 5.0 mm black nevus Gross Description: ? Received in formalin labelled [place] and #1 L scapula is a circular punch biopsy of riojas -white skin measuring 0.2 cm in diameter and 0.1 cm in thickness. ??The specimen is submitted as (A). Received in formalin candice d Orion Santo and #2 right ear is a circular punch biopsy of bernal-black skin measuring 0.2 cm in di ameter and 0.1 cm in thickness. ??The specimen is submitted as (B). ??(Yang riggins)/delfino End of Report Specimen Performing Organization Address City/State/ZIP Code Phon e Number [facility] [address] [place] [address] SERVICES [facility] [address] [place] [address] documented in this encounter Visit Diagnoses Not on filedocumented in this encounter
--- OUTSIDE RECORDS SUMMARY | 2022-08-04 02:04 | XMS_ITS | Encounter Summary ---
:1965 Author Organization [facility] Address [address] [place] [address] Care Team Providers Name Role Phone Killian Segovia DO Primary Care Provider Encounter Details Date Type Department Care Team Description 09/03/2018 Results Only [facility] Killian Segovia, DO [phone] [address] [place] [address] (Wo rk) Social History Tobacco Use Types Packs/Day Years Used Date Never Assessed Sex Assigned at Date Recorded Not on file documented as of this encounter Plan of Treatment Not on filedocumented as of this encounter Procedures Procedure Name Priority Date/Time Associated Diagnosis Comme [facility] SURGICAL PATHOLOGY Routine 09/03/2018 16:39 Resul ts for this EDT procedure are i n the results section. documented in this encounter Results SURGICAL PATHOLOGY (09/03/2018 16:39 EDT) Pathology Report: SURGICAL PATHOLOGY REPORT [facility] Reports generated via electronic interface contain kel ginal data; LABORATORY however they are lacking the format of the original re port. SERVICES Caution should be taken when reading/interpreting unfo rmatted reports. Name: ? ORION SANTO ? Accession #: ? [id number] ? : ? 1965 (Age: [age]) ??M ? Collect Date: ? 09/03/2018 ? Location: ? [facility] ? Receive Date: ? 018 ? Provider: KILLIAN SEGOIVA DO Copy to: ? Final Pathologic Diagnosis: SKIN OF MASTOID REGION, RIGHT, PUNCH BIOPSY: - Seborrheic keratosis, pigmented. Microscopic Description: The stratum corneum is thick ened by compact and basketweave orthokeratosis with formation of horn pseudocysts. ??The epi dermis is acanthotic with formation of broad and anastomosing trabeculae. ??The trabeculae ar e composed of basaloid keratinocytes with round uniform nuclei. ??The keratin ocytes have a variable amount of melanin pigment. ??(Dr. Dunlap)/[facility] Document reviewed and electronically signed by: BONNIE DUNLAP MD Report ??Date: 09/04/2018 14:23 By the signature above, the attending physician certif ies that he/she has personally conducted a gross and/or microscopic examin ation of the described specimens and rendered or confirmed the above diagnosi s. Specimen(s) Received: 2.0 mm punch Clinical History: Atypical nevus R mastoid region Gross Description: ? Received in formalin labelled with proper patient identification (initials G, J) and Rt mastoid region is a 0.2 x 0.2 x 0.1 cm irregular shave of riojas-brown skin. The margin is inked. The specimen is s ubmitted in toto in 1. CLINTON Boudreaux (ASCP) 09/03/2018 5:39 PM End of Report Specimen Performing Organization Address City/State/ZIP Code Phon e Number [facility] [address] [place] [address] SERVICES documented in this encounter Visit Diagnoses Not on filedocumented in this encounter Care Teams Power Plant Operator Apprentice Relationship Specialty Start Date End Date Killian Segovia DO PCP - General 12/03/12 02/16/[address] [place] [address] documented as of this encounter
--- OUTSIDE RECORDS SUMMARY | 2022-08-04 02:04 | XMS_ITS | Encounter Summary ---
:1965 Author Organization [facility] Address [address] [place] [address] Care Team Providers Name Role Phone LucaKillian Reinaldo HORAN Primary Care Provider Autumn Connor MD Primary Care Provider [phone] Encounter Details Date Type Department Care Team Description 02/24/2021 Lab Requisition [facility] Outr Resulting Lab, Pathology & Laboratory Provider [facility] [address] [place] [address] Social History Tobacco Use Types Packs/Day Years Used Date Never Assessed Sex Assigned at Date Recorded Not on file documented as of this encounter Plan of Treatment Not on filedocumented as of this encounter Procedures Procedure Name Priority Date/Time Associated Comments Diagnosis PSA TOTAL, Routine 02/23/2021 14:00 Results for this DIAGNOSTIC EDT procedure are i n the results section. documented in this encounter Results PSA TOTAL, DIAGNOSTIC (02/23/2021 14:00 EDT) Pathologist Sig nature PSA 1.3 0.0 - 3.5 ng/mL [facility] Specimen Blood - Venous blood (substance) Narrative [facility] - 02/24/2021 17:26 EDT NOTE: Serum PSA concentration should not be in terpreted as absolute evidence for the presence or absence of malignant disease. Assayed on Siemens ADVIA Centaur XPT usi ng chemiluminescent technology.??Values obtained by using different assay methods cannot be used interchangeably. Performing Organization Address City/State/ZIP Code Phon e Number [facility] [address] [place] [address] SERVICES documented in this encounter Visit Diagnoses Not on filedocumented in this encounter Care Teams Radar Systems Engineer Relationship Specialty Start Date End Date Killian Segovia DO PCP - General 12/03/12 02/16/22 [address] [facility] [place] [address] Autumn Connor MD PCP - General Family Medicine - Primary 02/17/22 [address] [facility] [address] documented as of this encounter
--- OUTSIDE RECORDS SUMMARY | 2022-08-04 02:04 | XMS_ITS | Encounter Summary ---
:1965 Author Organization [facility] [place] [address] Care Team Providers Name Role Phone Killian Segovia DO Primary Care Provider Reason for Visit Consultation (Routine) - Closed Specialty Diagnoses / Procedures Referred By Contact Refer red To Contact Vascular Surgery Diagnoses VARICOSE VEINS OF LE Killian Segovia DO [facility] 3v Procedures VARICOSE VEINS OF LE [address] [place] [phone] Phone: Referral ID Status Reason Start Date Expiration Date Visits Requ ested Visits Authorized [id number] Closed 04/11/2016 04/11/2017 1 1 Encounter Details Date Type Department Care Team Description 05/04/2016 Office Visit Vascular Surgery at [facility] Va ricose veins of leg [facility] GENERATOR TECHNICIAN with pain, unspecified [facility] [address] VASCULAR SURGERY [address] [place] [address] [phone] Social History Tobacco Use Types Packs/Day Years Used Date Never Smoker Sex Assigned at Date Recorded Not on file documented as of this encounter Last Filed Vital Signs Vital Sign Reading Time Taken Comments Blood Pressure 126/73 05/04/2016 9:02 AM EDT Pulse 70 05/04/2016 9:02 AM EDT Temperature - - Respiratory Rate - - Oxygen Saturation - - Inhaled Oxygen Concentration - - Weight 136.1 kg (300 lb) 05/04/2016 9:02 AM EDT Height 182.9 cm (6') 05/04/2016 9:02 AM EDT Body Mass Index 40.69 05/04/2016 9:02 AM EDT documented in this encounter Patient Instructions Patient InstructionsStHaritha feliz APRN - 05/04/2016 12:45 PM EDT Wear compression documented in this encounter Progress Notes Haritha Colón APRN - 05/04/2016 12:34 PM EDT Consult requested by KILLIAN SEGOVIA DO for evaluation of painful varicose veins. History: This is a 51 y.o. male who has noted painful varicose veins for >30 years. The patient has noted the following symptoms below for several months. The patient has not used 20-30mmHg compression stockings Due to the symptoms below, the patient has difficulty at work and it is affecting the quality oflife. Y N SYMPTOM X Leg aching X Leg swelling X Leg elevation greater than 20 minutes/3x per day x Daily use of compression stockings 20-30mmHg (6-8 weeks) X Family history of varicose veins x History of more than two episodes of phlebitis x Refractory edema X Stasis dermatitis skin changes with hyperpigmentation Very superfival raised spider veins. . X History of DVT X Prior venous surgery X Prior ulceration X Current ulceration X History of two more episodes of bleeding varicosities X Chronic cellulitis Review of Systems: Prior cardiac history: no Prior pulmonary history: no Prior issues with general anesthesia: no Family history of malignant hyperthermia: no Issues with snoring or sleep apnea: yes wears CPAP PE: Vitals: 05/04/16 0902 BP: 126/73 Pulse: 70 Body mass index is 40.69 kg/(m^2). Heart: RRR, no murmurs, no S3 or S4 Chest: CTA, no wheeze Location of the varicosities: Left medial thigh and calf with very large tortuous varicosities Size of the varicosities (greater than 3mm): 12-20 mm Carotid pulses equal and bilateral No palpable pulsatile abdominal masses, no abdominal bruits Palpable bilateral femoral, popliteal and tibial pulses Y N PHYSICAL FINDINGS X Radial pulses bilaterally X DP and PT pulses bilaterally X Palp cords medial thigh X Evidence of healed ulceration X Stasis dermatitis X Cellulitis X Palpable Thrills Assessment/Plan: 51 yo male with long standing history of left leg symptomatic very large varicose veins. He has not worn compression Prescription for 20-30 mm Hg compression given to patient He is to wear these for the next 6- 8 weeks. Educational material provided to patient. RTC in 6-8 weeks with left LE valvular incomp study and see surgeon to discuss results and options. documented in this encounter Plan of Treatment Not on filedocumented as of this encounter Results LE Unilateral Valvular Incomp Study (09/20/2016 2:05 PM EDT) Component Value Ref Test Analysis Performed At [facility] Range Method Time Signature VB Text Department: Vascular Surgery Lab [facility] Report Patient: [id number] (ORION SANTO) CPT: 52156 ICD10: I83.819;I87.2 Referring Physician: ANABELLE PETTIT ?? Phone: Indications: very large symptomatic left leg VV; ? valvular incompetence ICD10 Diagnosis Code: I83.819 Findings: Left ? Reflux?Diameter (mm) ? ?Depth (mm) ?? Common Femoral Vein ?Ref lux ? Femoral Vein ? Competent ? Popliteal [...] SSV ?Reflux ? Interpretation: Left: Superficial vein valvu lar incompetence: There is reflux from the CFV into the GSV extending from the groin to the ankle (> 5 seconds duration). There is also reflux in the SSV in the mid to dis con calf. No significant reflux in the deep veins distal to the CFV . No evidence of deep or superficial vein thrombus. The GSV exits the fascia in the mid thigh and is very tortuous and large from the knee to the mid calf. Comparison: ??No previous study in our vascular lab da tabase for comparison. Electronically Signed by: TARIQ TRUJILLO on 2016-09-20 05:57: 41 PM VB Text End of Report [facility] Report Specimen (Source) Anatomical Collection Method Collection Time Re ceived Time Location / / Volume Laterality 09/20/2016 2:05 PM EDT Anabelle Pettit MD VASCULAR ORDERABLES Performing Organization Address City/State/ZIP Code Phon e Number [facility] documented in this encounter Visit Diagnoses Diagnosis Varicose veins of leg with pain, unspeci fied laterality documented in this encounter Care Teams Marketing Professional Relationship Specialty Start Date End Date Killian Segovia DO PCP - General Family Medicine 05/04/[address] [place] [address] documented as of this encounter
--- OUTSIDE RECORDS SUMMARY | 2022-08-04 02:04 | XMS_ITS | Encounter Summary ---
:1965 Author Organization [facility] Address [facility] [place] [address] Care Team Providers Name Role Phone Killian [...] Expiration Date Visits Requ ested Visits Authorized [id number] 1 1 Encounter Details Date Type Department Care Team Description 09/29/2016 Hospital Encounter Same Day Program at [facility] Varicose veins of leg with pain, unspecified laterality; Valentine Lopez MD Varicose vein of leg; [facility] Varicose veins of leg with p ain, left [facility] [place] [address] [phone] Social History Tobacco Use Types Packs/Day Years Used Date Never Smoker Smokeless Tobacco: Never Used Alcohol Use Standard Drinks/Week Comments Yes 6 (1 standard drink = 0.6 oz pure alcoho l) Sex Assigned at Date Recorded Not on file documented as of this encounter Last Filed Vital Signs Vital Sign Reading Time Taken Comments Blood Pressure 173/86 09/29/2016 2:15 PM EST Pulse 68 09/29/2016 12:45 PM EST Temperature 36.3 ??C (97.3 ??F) 09/29/2016 10:22 AM EST Respiratory Rate 15 09/29/2016 12:45 PM EST Oxygen Saturation 94% 09/29/2016 2:15 PM EST Inhaled Oxygen Concentration - - Weight 139.3 kg (307 lb 1.6 oz) 09/29/2016 7:21 AM EST Height 182.9 cm (6') 09/29/2016 7:21 AM EST Body Mass Index 41.65 09/29/2016 7:21 AM EST documented in this encounter Discharge Instructions Discharge InstructionsElvia Barrett RN - 09/29/2016 10:40 AM EST POST [...] For any problems or questions please call [phone] For issues on weeknights after 5pm and weekends please call [phone] and ask for the Vascular Fellow photoresist contact printer. AGUSTIN Reyes, forming acid dumper Nurse Clinician documented in this encounter Medications [...] Villareal MD - 09/29/2016 10:20 AM EST [facility] Operative Note Patient Name: Orion Santo : [id number] MR#: [id number] Case Date: 09/29/2016 Surgeon: Surgeon(s) and Role: [...] Component Value Ref Test Analysis Performed At [facility] Range Method Time Signature VB Text Department: Vascular Surgery Lab [facility] Report Patient: [id number] (ORION SANTO) CPT: 61441 ICD10: I82.812;I83.812 Referring Physician: MESSI ALEJANDRO ?? [...] Varicose veins of leg with pain, left documented in this encounter Administered Medications Inactive [...] Routine documented in this encounter Care Teams Call Or Contact Centre Operator Relationship Specialty Start Date End Date Killian Segovia DO PCP - General Family Medicine 05/04/16 [address] [place] [address] documented as of this encounter
--- OUTSIDE RECORDS SUMMARY | 2022-08-04 02:04 | XMS_ITS | Encounter Summary ---
:1965 Author Organization [facility] [place] [address] Care Team Providers Name Role Phone Killian Segovia DO Primary Care Provider Encounter Details Date Type Department Care Team Description 09/20/2016 Hospital Encounter [facility]ascular Lab at [facility], [facility] [place] [id number] Social History Tobacco Use Types Packs/Day Years Used Date Never Smoker Sex Assigned at Date Recorded Not on file documented as of this encounter Medications at Time of Discharge Medication Sig Dispensed Refills Start Date End Date allopurinol (ZYLOPRIM) 100 Take 100 mg by mouth 0 mg Tablet daily. citalopram (CELEXA) 10 mg Take 10 mg by mouth 0 Tablet daily. triamcinolone (KENALOG) Apply topically 2 0 0.1 % Cream times daily. indomethacin (INDOCIN) 50 0 08/23/2005 mg capsule documented as of this encounter Plan of Treatment Not on filedocumented as of this encounter Procedures Procedure Name Priority Date/Time Associated Diagnosis Comme nts UNLATERAL VALVULAR Routine 09/20/2016 2:05 PM Varicose veins o f Results for this INCOMP EDT leg with pain, procedure are in unspecified the results laterality section. documented in this encounter Results LE Unilateral Valvular Incomp Study (09/20/2016 2:05 PM EDT) Component Value Ref Test Analysis Performed At [facility] Range Method Time Signature VB Text Department: Vascular Surgery Lab [facility] Report Patient: [id number] (ORION SANTO) CPT: 16210 ICD10: I83.819;I87.2 Referring Physician: ANABELLE NAZARIO ?? Phone: Indications: very large symptomatic left [...] tabase for comparison. Electronically Signed by: TARIQ TRUJILOL on 2016-09-20 05:57: 41 PM VB Text End of Report [facility] Report Specimen (Source) Anatomical Collection Method Collection Time Re ceived Time Location / / Volume Laterality 09/20/2016 2:05 PM EDT Anabelle Nazario MD VASCULAR ORDERABLES Performing Organization Address City/State/ZIP Code Phon e Number [facility] documented in this encounter Visit Diagnoses Diagnosis Varicose veins of leg with pain, unspeci fied laterality documented in this encounter Care Teams Brewery Representative Relationship Specialty Start Date End Date Killian Segovia DO PCP - General Family Medicine 05/04/16 [address] [place] [address] documented as of this encounter
--- OUTSIDE RECORDS SUMMARY | 2022-08-04 02:04 | XMS_ITS | Encounter Summary ---
:1965 Author Organization [facility] Address [address] [place] [address] Care Team Providers Name Role Phone LucaKillian Primary Care Provider Autumn Connor MD Primary Care Provider [phone] Encounter Details Date Type Department Care Team Description 09/13/2021 Lab Requisition [facility] Outr Resulting Lab, Pathology & Laboratory Provider [facility] [address] [place], [place] [id number] Social History Tobacco Use Types Packs/Day Years Used Date Never Assessed Sex Assigned at Date Recorded Not on file documented as of this encounter Plan of Treatment Not on filedocumented as of this encounter Procedures Procedure Name Priority Date/Time Associated Diagnosis Comme nts COVID-19 TEST [facility] Today 09/13/2021 15:26 LAB PCR EDT COVID-19 TESTING Routine 09/13/2021 15:26 Results for this EDT procedure are i n the results section. documented in this encounter Results COVID-19 TEST [facility] LAB PCR (09/13/2021 15:26 EDT) Specimen Swab - Entire nasopharynx (body structur e) Performing Organization Address City/State/ZIP Code Phon e Number [facility] [address] [place] [address] SERVICES COVID-19 TESTING (09/13/2021 15:26 EDT) COVID-19 rt-PCR Negative Negative [facility] MED[facility] Result Comment: [facility] This test has not been FDA c leared or approved. This test has been authorized by FDA under an EUA for use by authorized laboratories. This test has been authorized only for detection of nucleic acid fro SERVICES m 2019-nCoV, not for any oth er viruses or pathogens. This test is only authorized for the duration of the declaration that circumstances exist justifying the authorization of emergency use of in vitro d iagnostic tests for detectio n and/or diagnosis of 2019-nCoV under section 564(b)(1) of Act, 21 U.S.C ?? 360bbb-3(b) (1), unless the authorization is terminated or revoked sooner. Negative results do not prec lude 2019-nCoV infection and should not be used as the sole basis for treatment or other patient management decisions. Negative results must be combined with clinical observa tions, patient history, and epidemiological informatio n. Testing was performed using the cruz SARS-CoV-2 assay ([employer] on the Cruz 6800 System Performing Lab [address] [facility] Lab [facility] SERVICES Specimen Swab Performing Organization Address City/State/ZIP Code Phon e Number [facility] [address] [place] [address] SERVICES documented in this encounter Visit Diagnoses Not on filedocumented in this encounter Care Teams Client Architect Relationship Specialty Start Date End Date Killian Segovia DO PCP - General 12/03/12 02/16/22 [address] [place], [place] [address] Autumn Connor MD PCP - General Family Medicine - Primary 02/17/22 [address] [facility],[address] [address] documented as of this encounter
--- OUTSIDE RECORDS SUMMARY | 2022-08-04 02:04 | XMS_ITS | Encounter Summary ---
:1965 Author Organization [facility] [place] [address] Care Team Providers Name Role Phone Killian Segovia DO Primary Care Provider Encounter Details Date Type Department Care Team Description 10/02/2016 Hospital Encounter Vascular Lab at [facility], Varico se veins of [facility] [place] leg with tita n, [place] [address] Social History Tobacco Use Types Packs/Day Years [...] for Pain. documented as of this encounter Plan of Treatment Not on filedocumented as of this encounter Procedures Procedure Name Priority Date/Time Associated Diagnosis Comme nts DUPLEX FOR DVT, Routine 10/02/2016 4:00 PM Varicose veins of R esults for this LEG, UNILAT EST leg with pain, left procedur e are in the results section. documented in this encounter Results Duplex for DVT, Leg, Unilat (10/02/2016 4:00 PM EST) Component Value Ref Test Analysis Performed At [facility] Range Method Time Signature VB Text Department: Vascular Surgery Lab [facility] Report Patient: [id number] (ORION SANTO) CPT: 22499 ICD10: I82.812;I83.812 Referring Physician: MESSI ALEJANDRO ?? [...] Diagnosis Varicose veins of leg with pain, left documented in this encounter Care Teams Laborer Gold Leaf Relationship Specialty Start Date End Date Killian Segovia DO PCP - General Family Medicine 05/04/[address] [place] [address] documented as of this encounter
--- OUTSIDE RECORDS SUMMARY | 2022-08-04 02:04 | XMS_ITS | Encounter Summary ---
:1965 Author Organization [facility] [place] [address] Care Team Providers Name Role Phone Killian Segovia DO Primary Care Provider Encounter Details Date Type Department Care Team Description 10/26/2016 Office Visit Vascular Surgery at [facility] Ven ous insufficiency of lower extremity, unspecified laterality; [facility] [place]icose vein of leg [facility] [address] [place] VASCULAR SURGERY [address] [place] [address] [phone] Social History Tobacco Use Types Packs/Day Years Used Date Never Smoker Smokeless Tobacco: Never Used Alcohol Use Standard Drinks/Week Comments Yes 6 (1 standard drink = 0.6 oz pure alcoho l) Sex Assigned at Date Recorded Not on file documented as of this encounter Last Filed Vital Signs Vital Sign Reading Time Taken Comments Blood Pressure 150/79 10/26/2016 1:22 PM EST Pulse 68 10/26/2016 1:22 PM EST Temperature - - Respiratory Rate - - Oxygen Saturation - - Inhaled Oxygen Concentration - - Weight 136.1 kg (300 lb) 10/26/2016 1:22 PM EST Height 182.9 cm (6') 10/26/2016 1:22 PM EST Body Mass Index 40.69 10/26/2016 1:22 PM EST documented in this encounter Progress Notes [facility]i Alejandro MD - 10/26/2016 1:00 PM EST Reason for visit: f/u after left venous ablation/phlebectomy Interval history: Mr. Mccall returns one month after undergoing left GSV VNUS ablation and stab phlebectomies of left calf/cordova varicosities. His initial duplex showed no DVT and good thrombosis of theGSV. He has since undergone arthroscopic surgery of the left knee and is recovering from that. He denies any swelling, drainage, erythema or pain. His bruising is improving. He wears compression stockings daily, but these are thigh-high and older and fall easily. He denies any ulcers, rest pain, or claudication. Prior vascular history: 09/29/2016 L GSV VNUS and stab phlebectomy x6 Physical Exam: General: NAD, appears well Neuro: Alert and oriented, motor sensory grossly intact Abd: Soft, NT, ND, no palpable pulsatile masses Extremity - Hubbard, warm, no ulceration, brisk capillary refill, no edema. Healing stab incisions. GSVon the left palpable, firm c/w thrombosis, no phlebitis or tenderness. Bruising resolving, no hematoma. Vascular: palpable pedal pulses Studies: none today Assessment/Plan: Mr. Mccall has recovered well from his surgery. He is happy with the result. He has no residual varicosities and his GSV is adequately occluded. He will need to continue to wear compression stockings. I gave him a Rx for 20-30mmHg thigh high ones to be fitted to aid with compliance in wearing these. He may f/u on an as needed basis. Messi Alejandro MD, MS Section of Vascular Surgery documented in this encounter Plan of Treatment Not on filedocumented as of this encounter Visit Diagnoses Diagnosis Venous insufficiency of lower extremity, unspecified laterality Varicose vein of leg Asymptomatic varicose veins documented in this encounter Care Teams Coroner'S Juror Relationship Specialty Start Date End Date Killian Segovia DO PCP - General Family Medicine 05/04/[address] [place] [address] documented as of this encounter
--- OUTSIDE RECORDS SUMMARY | 2022-08-04 02:04 | XMS_ITS | Encounter Summary ---
:1965 Author Organization [facility] Address [address] [place] [address] Care Team Providers Name Role Phone Unavailable Primary Care Provider Unavailable Encounter Details Date Type Department Care Team Description 07/30/2007 Results Only [facility] Berry Girard MD [address] [place] [address] [place] [address] [phone] Social History Tobacco Use Types Packs/Day Years Used Date Never Assessed Sex Assigned at Date Recorded Not on file documented as of this encounter Plan of Treatment Not on filedocumented as of this encounter Procedures Procedure Name Priority Date/Time Associated Diagnosis Comme nts CYTOPATHOLOGY Routine 07/30/2007 0:00 EDT Results for this procedure are i n the results section . documented in this encounter Results CYTOPATHOLOGY (07/30/2007 0:00 EDT) Pathology Report: CYTOPATHOLOGY REPORT [facility] Reports generated via electronic interface contain kel ginal data; however they are lacking the format of the original re port. Caution should be taken when reading/interpreting unfo rmatted reports. Name: ? ORION SANTO ? Accession #: ? [id number] : ? 1965 (Age: 42) ??M ?Collect Date: ? 07/20 Location: ? [facility] ? Receive Date : ? 08/01/2007 Provider: ? BERRY DRAKE MD Copy to: ? CYTOLOGIC DIAGNOSIS: ? Urine, voided, cytologic evaluation: - No malignant cells identified. ?? Document reviewed and electronically signed by: ? Gabe Paulino MD Report Date: ??08/01/2007 16:14 By the signature above, the attending physician certif ies that he/she has personally conducted a gross and/or microscopic examin ation of the described specimens and rendered or confirmed the above diagnosi s. Specimen Type: ? Urine, Voided Clinical History: ? Microscopic hematuria ? Gross Description: ? 1 tube of Cytolyt was received and processed by selective cellular enhancement technique. ? End of Report Specimen Performing Organization Address City/State/ZIP Code Phon e Number [facility] [address] [place] [address] SERVICES [facility] [address] [place] [address] documented in this encounter Visit Diagnoses Not on filedocumented in this encounter
--- OUTSIDE RECORDS SUMMARY | 2022-08-04 02:04 | XMS_ITS | Encounter Summary ---
:1965 Author Organization [facility] Address [address] [place] [address] Care Team Providers Name Role Phone Autumn Connor MD Primary Care Provider [phone] Encounter Details Date Type Department Care Team Description 03/01/2022 Lab Requisition [facility] Killian Segovia ncounter for other Pathology & F, DO general examination Laboratory Medicine [address] [place] [id number] [facility] [place] [address] Social History Tobacco Use Types Packs/Day Years Used Date Never Assessed Sex Assigned at Date Recorded Not on file documented as of this encounter Plan of Treatment Not on filedocumented as of this encounter Procedures Procedure Name Priority Date/Time Associated Diagnosis Comme nts SURGICAL PATHOLOGY Today 02/28/2022 16:00 Encounter for othe r Results for this EDT general examination procedur e are in the results section. documented in this encounter Results SURGICAL PATHOLOGY (02/28/2022 16:00 EDT) Note to Patient The following [facility] pathology results CENTER have been interpreted LABORATORY by your pathologist SERVICES and may be available to you before your health provider has had the opportunity to review them. Please allow time for your provider to receive these results and explore management options, if applicable. Final Diagnosis A. SKIN OF SCAPULA, LEFT, PUNCH BIOPSY: [facility] - Dermatofibroma. CENTER LABORATORY SERVICES Attestation There was significant [facility] Electr onically resident/fellow CENTER signed by [facility], involvement in the LABORATORY Garfield Bain on diagnostic evaluation SERVICES 022 at 0848 of this case. By the signature below, the attending physician certifies that they have personally conducted a gross and/or microscopic examination of the described specimens and rendered or confirmed the above diagnosis. Clinical History Atypical nevus [facility] Gross Description A. [facility] Received in formalin candice d with proper patient identification (initials G, J) and LT scapula is a punch biopsy of riojas skin (0.2 cm in diameter and 0.1 cm in thickness). Submitted intact in A1. CENTER LABORATORY THONG CAI DO 03/01/2022 15:39 SER VICES Resident/Fellow: Thong Cai [facility] Performing Lab [facility] Scanned Images [facility] Specimen Tissue - Skin (tissue) specimen (specime n) Performing Organization Address City/State/ZIP Code Phon e Number [facility] [address] [place] [address] SERVICES documented in this encounter Visit Diagnoses Diagnosis Encounter for other general examination documented in this encounter Care Teams Wire Roller Relationship Specialty Start Date End Date Autumn Connor MD PCP - General Family Medicine - Primary 02/17/22 [address] [facility],[place] [address] documented as of this encounter
--- OUTSIDE RECORDS SUMMARY | 2022-08-04 02:04 | XMS_ITS | Encounter Summary ---
:1965 Author Organization [facility] Address [address] [place] [address] Care Team Providers Name Role Phone Killian Segovia DO Primary Care Provider Encounter Details Date Type Department Care Team Description 09/03/2018 Hospital Encounter [facility] Unknown, Provider, [facility] [address] [facility] [phone] [place] [address] (Work) [phone] Social History Tobacco Use Types Packs/Day Years Used Date Never Assessed Sex Assigned at Date Recorded Not on file documented as of this encounter Discharge Disposition Disposition Code Departure Means Destination Home or Self Alf documented in this encounter Plan of Treatment Not on filedocumented as of this encounter Visit Diagnoses Not on filedocumented in this encounter Care Teams Odd Job Laborer Relationship Specialty Start Date End Date Killian Segovia DO PCP - General 12/03/12 02/16/[address] [place]ET ROTH[place] [id number] documented as of this encounter
[2022-08-04 16:41] LABS: Anion Gap 6.6 mmol/L (3-11); BUN 19 mg/dL (7-18); CO2 29.4 mmol/L (21.0-32.0); Calcium 9.2 mg/dL (8.5-10.1); Chloride 106 mmol/L (98-107); Glucose 81 mg/dL (74-106); Sodium 142 mmol/L (136-145)
== END 2022-08-04 02:00 | disposition home or self-care (01) ==
PROVIDERS: PCP Family Medicine; Visit Provider Family Medicine
DX: E66.01 Morbid (severe) obesity due to excess calories (principal); R73.01 Impaired fasting glucose; Z00.00 Encounter for general adult medical examination without abnormal findings
CPT/HCPCS: 36415; 80048; 83036

== ENCOUNTER 2022-08-30 18:50 | Outpatient (REF) | payer BC, SELFPAY ==
[2022-08-30 20:44] LABS: Bilirubin Negative (Negative); Blood Small (Negative); Clarity Turbid (Clear); Glucose Negative (Negative); Ketones Negative (Negative); Leukocyte Esterase Negative (Negative); Nitrite Negative (Negative); Specific Gravity >= 1.030 (1.005-1.025); Urobilinogen 0.2 EU/dL (Up TO 0.2); pH 5.5 (5-8)
[2022-08-30 20:53] LABS: Epithelial Cells Negative HPF (Negative); RBC 0-2 HPF (0-2); WBC Negative HPF (0-5)
[2022-08-30 20:54] LABS: C & S Indicated? No; Crystals Many Amorphous HPF (Negative); Mucus Negative (Negative)
== END 2022-08-30 18:51 | disposition home or self-care (01) ==
LOC: LBN 18:50
PROVIDERS: PCP Family Medicine; Visit Provider Family Medicine
DX: R31.9 Hematuria, unspecified (principal); R30.0 Dysuria
CPT/HCPCS: 81003; 81015

== ENCOUNTER 2022-11-22 04:16 | Outpatient (CLI) | payer BC, SELFPAY ==
--- NOTE | 2022-11-22 07:15 | DI.RAD_ITS ---
Exam(s) XR FOOT RT COMPLETE EXAM: XR FOOT RT COMPLETE CLINICAL HISTORY: foot pain, BILAT, M79.673. TECHNIQUE: 2D digital imaging was performed. Three views. COMPARISON: CR RIGHT HEEL (OS CALCIS) from 07/11/2010 FINDINGS: BONES: No acute fracture is present. No bony destructive lesion is seen. Joint as well as intertarsa l region. Heel spurs. Mild valgus deviation of the toes. JOINTS: No dislocation present. Mild degenerative changes 1st MTP SOFT TISSUE: Normal. IMPRESSION: No acute abnormality. DATA REPOSITORY: RADIATION DOSE DELIVERED:
--- NOTE | 2022-11-22 07:15 | DI.RAD_ITS ---
Exam(s) XR FOOT LT COMPLETE EXAM: XR FOOT LT COMPLETE CLINICAL HISTORY: foot pain. TECHNIQUE: 2D digital imaging was performed. Three views. COMPARISON: CR XR FOOT RT COMPLETE from 11/22/2022 FINDINGS: BONES: No acute fracture is present. No bony destructive lesion is seen. Enthesophyte at Achilles ins ertion. Tiny plantar calcaneal spur. Valgus deviation of the 2nd and 3rd toes. JOINTS: No dislocation present. Mild intertarsal degenerative changes. SOFT TISSUE: Normal. IMPRESSION: No acute abnormality. DATA REPOSITORY: RADIATION DOSE DELIVERED:
== END 2022-11-22 04:36 ==
PROVIDERS: PCP Family Medicine; Visit Provider Family Medicine
DX: M79.671 Pain in right foot (principal); M79.672 Pain in left foot; M77.32 Calcaneal spur, left foot; M77.31 Calcaneal spur, right foot
CPT/HCPCS: 73630

== ENCOUNTER 2022-12-07 03:07 | Outpatient (CLI) | payer BC, SELFPAY ==
--- NOTE | 2022-12-07 08:15 | DI.RAD_ITS ---
Exam(s) XR KNEE RT 3V AP,LAT,PHUONG EXAM: XR KNEE RT 3V AP,LAT,PHUONG CLINICAL HISTORY: right knee pain,m25.561. TECHNIQUE: 2D digital imaging was performed. COMPARISON: CR LEFT KNEE LIMITED 1 OR 2 VIEWS from 05/01/2016 FINDINGS: 3 views No evidence of fracture nor prominent joint effusion. Minimal degenerative changes. Mild degenerati ve pointing of the tibial spines there appears to be possible subarticular cyst in the tibial plateau at this level. No joint space narrowing evident on weight-bearing view. No osseous lesions. IMPRESSION: Mild degenerative changes. DATA REPOSITORY: RADIATION DOSE DELIVERED:
== END 2022-12-07 03:27 ==
LOC: DI 03:08
PROVIDERS: PCP Family Medicine; Visit Provider Family Medicine
DX: M25.561 Pain in right knee (principal); M17.11 Unilateral primary osteoarthritis, right knee
CPT/HCPCS: 73562

== ENCOUNTER 2023-03-16 01:41 | Outpatient (CLI) | payer BC, SELFPAY ==
[2023-03-16 23:23] LABS: PSA, Screening 1.2 ng/mL (<=4.5)
== END 2023-03-16 01:42 | disposition home or self-care (01) ==
LOC: LBO 01:41
PROVIDERS: PCP Family Medicine; Visit Provider Family Medicine
DX: Z12.5 Encounter for screening for malignant neoplasm of prostate (principal); R39.11 Hesitancy of micturition
CPT/HCPCS: 36415; 84153

== ENCOUNTER 2023-04-09 10:45 | Day surgery (SDC) | payer BC, SELFPAY ==
[2023-04-09 10:55] VITALS: BP 127/77; PULSE 80; RESP 16; TEMP 36.2; O2SAT 95
[2023-04-09] MEDS: Lactated Ringers 1,000 ML 80 ML IV (11:39)
--- NOTE | 2023-04-09 11:47 | W.PM.OP ---
Date of service: 04/09/23 Time of Service: 13:05 Operative Note Operative Note Refer to Anesthesia Record Procedure Description: Procedures performed: 1. Colonoscopy with snare polypectomy x1 2. Cold forceps polypectomy times Preoperative diagnosis: Surveillance colonoscopy, colon polyps, diverticulosis Postoperative diagnosis: Colon polyps, sigmoid diverticulosis, grade 1 internal hemorrhoids Surgeon: Shukri Lopez Anesthesia: Garo Indication for procedure: The patient is a 58-year-old man who has had prior colonoscopies and has had adenomatous polyps removed each time. Last colonoscopy was 3 years ago and 4 polyps were removed. There is no family history of colon cancer. There are no symptoms. Findings: A 3 to 5 mm sessile polyps removed piecemeal with cold forceps technique. In the ascending colon another 2-3 mm sessile polyp was removed with cold forceps technique. In the proximal transverse colon a 3-5 mm sessile polyp was removed with hot snare technique. Scattered diverticuli are present in the sigmoid colon only. Grade 1 internal hemorrhoids on retroflexion. Surveillance/follow-up recommendations: Because of the personal, family histories and finding more polyps today, I recommend repeating in 3 years Complications: None Blood loss: Minimal Specimens: YES Quality of Prep: Good Procedure in detail: Written consent was obtained from the patient who was in agreement with the risks, benefits and indications of the procedure. We went to the endoscopy suite and laid the patient in left lateral decubitus position. Anesthesia was administered which was tolerated well. A timeout was performed and when we are all in agreement we began the procedure. Digital rectal exam and visual examination was performed and within normal limits. A well?lubricated colonoscope was advanced without difficulty all the way to the cecum identified by the ileocecal valve, and triangular folds and appendiceal orifice. It was then slowly withdrawn. Retroflexion was performed in the rectum. The findings/interventions are noted above. The scope was then removed and the patient tolerated the procedure well and was then taken back to the PACU in hemodynamically stable condition.
--- NOTE | 2023-04-09 12:40 | W.ANESPRE ---
General Info Date of Service Date Performed: 04/09/23 Height: 6 ft Weight: 139.1 kg Body Mass Index (BMI): 41.5 Surgical Procedure: Operation Date: 04/09/23 12:05 Proposed Procedure Side Surgeon p Colonoscopy Ulises Lopez MD Actual Procedure Side Surgeon p Colonoscopy Ulises Lopez MD Meds Allergies and Home Medications Allergies Allergy/AdvReac Type Severity Reaction Status Date / Time bupropion AdvReac Intermediate worsening Verified 04/06/23 15:42 depression meperidine HCl [From Demerol] AdvReac Intermediate vomiting Verified 04/06/23 15:42 Home Medication Medication Instructions Recorded triamcinolone acetonide 0.5 % 1 applic topical BID PRN #3 tubes 01/28/19 topical cream sildenafil 100 mg tablet (Viagra) 100 mg PO DAILY PRN sexual 11/01/21 activity #10 tabs indomethacin 50 mg capsule 50 mg PO TID PRN gout #20 caps 02/28/22 venlafaxine 150 mg 150 mg PO QAM #90 caps 08/02/22 capsule,extended release 24 hr allopurinol 300 mg tablet 300 mg PO DAILY #90 tabs 03/02/23 doxazosin 2 mg tablet 2 mg PO QHS #30 tabs 03/02/23 methylphenidate HCl 40 mg biphasic 40 mg PO QAM #28 caps 03/02/23 50-50 capsule,extended release (Ritalin LA) bisacodyl 5 mg tablet,delayed 5 mg PO ONCE colonscopy bowel prep 03/29/23 release (Dulcolax (bisacodyl)) #4 tabs polyethylene glycol 3350 17 238 g PO ONCE colonoscopy prep 03/29/23 gram/dose oral powder #238 grams Current Visit Medications: Current Medications Generic Name Dose Route Start Last Admin Trade Name Freq PRN Reason Stop Dose Admin Ringer's Solution 1,000 mls @ 80 mls/hr 04/09/23 06:00 04/09/23 11:39 IV 05/06/23 23:59 80 mls/hr INFUSION THIEN Administration IV Miscellaneous Supplies 1 each 04/09/23 06:00 Iv Access IV 05/06/23 23:59 DIRECTED THIEN Sodium Chloride 0 ml 04/09/23 06:00 Normal Saline Flush 10 Ml Syr IV 05/06/23 23:59 PRN PRN Sodium Chloride 0 ml 04/09/23 06:00 Normal Saline 10 Ml Vial IJ 05/06/23 23:59 DIRECTED PRN Sterile Water 0 ml 04/09/23 06:00 Water,Injection,Sterile 10 Ml Vial IJ 05/06/23 23:59 DIRECTED PRN PFSH Active Problems Active Problems: Problem Status Onset Code Gout M10.9 Obstructive sleep apnea syndrome 12/17/15 G47.33 Sensorineural hearing loss, bilateral 12/24/17 H90.3 Major depress dis, severe F32.2 ADHD (attention deficit hyperactivity disorder), combined type F90.2 Binge eating disorder F50.81 Chronic post-traumatic stress disorder (PTSD) F43.12 Umbilical hernia K42.9 Obesity, Class III, BMI 40-49.9 (morbid obesity) E66.01 Essential hypertension I10 Primary osteoarthritis of right knee M17.11 Urinary hesitancy R39.11 Medical History Medical History Cholelithiasis NOS asymtomatic Complex tear of medial meniscus of left knee as current injury (10/20/16) Family history of prostate cancer (10/10/17) Fatty liver disease, nonalcoholic Head trauma Rotator cuff impingement syndrome of right shoulder Tinnitus, bilateral Tubular adenoma of colon (12/14/17) multiple Tubulovillous adenoma (05/03/16) Varicose veins of lower extremity left great saphenous varicosity Surgical History Surgical History Hx of vein stripping Hydrocele left S/P colonoscopy (~08/04/19) 2015- Tubulovillous adenoma S/P left knee arthroscopy (~2015) Status post inguinal hernia repair Tobacco Smoking/Tobacco Use Status: Never Passive smoking exposure: Yes Second hand exposure: Yes Alcohol Alcohol Intake: current Alcohol intake frequency: a few times a week Alcohol type: beer Substance Use Substance use: Never Substance use type: does not use Vital Signs and Lab Results Vital Signs Most Recent Vital Signs in EMR: Most Recent Vital Signs Temp Pulse Resp BP Pulse Ox 36.2 C L 80 16 127/77 95 04/09/23 10:55 04/09/23 10:55 04/09/23 10:55 04/09/23 10:55 04/09/23 10:55 Lab Results Blood Type / Crossmatch: No Data to Display Complete Blood Count: No Data to Display Complete Metabolic Panel: No Data to Display Liver Function Panel: No Data to Display Coagulation Panel: No Data to Display Cardiac Panel: No Data to Display Arterial Blood Gas: No Data to Display Venous Blood Gas: No Data to Display Pancreas Panel: No Data to Display Thyroid Panel: No Data to Display Infectious Disease: No Data to Display Blood Cultures: No Data to Display Toxicology Panel: No Data to Display Anesthesia Assessment and Plan Anesthesia History Personal History: No History of Anesthesia Complications Family History: No Family History of Anesthesia Complications Exercise Tolerance Exercise Tolerance: Metabolic Equivalents>4 Pertinent Negatives Pertinent Negatives: No Symptoms of GERD, No Major Cardiovascular Symptoms or Complaints, No Major Pulmonary Symptoms or Complaints and No History of CVA/TIA Cardiac & Pulmonary Exam Cardiac Exam: Normal S1/S2 Heart Sounds Pulmonary Exam: Clear Bilateral Breath Sounds Implantable Cardiac Device Does patient have a Pacemaker or an ICD?: No Airway Exam Known Difficult Airway: No Mallampati Class: 2 Mouth Opening: Normal (> 3cm) Thyromental Distance: Greater than 3 cm Facial Hair: Full Knutson Neck Range of Motion: Full ROM Neck Circumference: Normal Teeth Condition: Normal Dentition ASA Classification ASA Score: ASA 3 Emergency Case?: No NPO Status NPO Status: NPO Clears >2 hours, Solids >8 hours Anesthesia Plan Resuscitation Status: Full Code Anesthesia Technique: General Anesthesia Airway Planned: Natural Airway Monitors Used: Standard Monitors
--- NOTE | 2023-04-09 12:57 | BOWEL_PTH ---
PATIENT: Orion Mccall LOC: [facility] U#:[id number] AGE/SX: 58/M ROOM: RE04/09/[address]: Ulises Lopez : 1965 BED: DIS: 04/09/2023 SPEC #: [id number] RECD: 04/09/23 16:16 STATUS: TING [facility] #: [id number] SAMUEL: 04/09/23 12:[address]: Ulises Lopez DEPT: Surgical Specimen RECD BY: Maite Hobbs ENTERED: 04/09/23 16:17 SP TYPE: Bowel OTHR DR: Autumn Connor Tissues: 1 - BIOPSY BOWEL 2 - BIOPSY BOWEL 3 - BIOPSY BOWEL Procedures: GROSS AND MICRO LEVEL 4 Comments: [id number]
[2023-04-09 13:01] VITALS: BMI 41.5
[2023-04-09 13:19] VITALS: BP 147/93; PULSE 78; RESP 14; TEMP 36.6; O2SAT 96
--- NOTE | 2023-04-09 13:26 | W.ANESPOSTOP ---
Postoperative Evaluation Date, Time and Location Date Performed: 04/09/23 Time Performed: 13:26 Patient Location: Day Surgery Unit Vital Signs Most Recent Imported Vital Signs: Most Recent Vital Signs Temp Pulse Resp BP Pulse Ox 36.2 C L 80 16 127/77 95 04/09/23 10:55 04/09/23 10:55 04/09/23 10:55 04/09/23 10:55 04/09/23 10:55 Assessment Mental Status: Awake (Alert & Oriented to Patient Baseline) Airway and Respiratory Function: Patent airway with normal (patient baseline) respiratory exam Cardiovascular Function: Hemodynamically Stable Hydration Status: Adequately Hydrated Nausea & Vomiting: No Nausea or Vomiting Pain: Pain is tolerable per patient Peripheral Nerve Block: Patient did not receive a nerve block
[2023-04-09 13:39] VITALS: BP 135/86; PULSE 70; RESP 18; TEMP 36.7; O2SAT 97
[2023-04-09 13:51] VITALS: BP 133/89; PULSE 66; RESP 18; TEMP 36.7; O2SAT 94
[2023-04-09 14:30] VITALS: BP 135/85; PULSE 72; RESP 18; TEMP 36.6; O2SAT 95
== END 2023-04-09 14:50 | disposition home or self-care (01) ==
PROVIDERS: PCP Family Medicine; Visit Provider Student in an Organized Health Care Education/Training Program
PROC: 0DJD8ZZ Inspection of Lower Intestinal Tract, Via Natural or Artificial Opening Endoscopic (ICD-10-PCS; CPT 45378; principal; 2023-04-09 12:00)
DX: Z12.11 Encounter for screening for malignant neoplasm of colon (principal); D12.0 Benign neoplasm of cecum; K64.0 First degree hemorrhoids; K57.30 Diverticulosis of large intestine without perforation or abscess without bleeding; Z86.010 Personal history of colon polyps; D12.2 Benign neoplasm of ascending colon; D12.3 Benign neoplasm of transverse colon
CPT/HCPCS: 45385; 45380; 88305; J2704

== ENCOUNTER 2023-10-02 01:01 | Outpatient (CLI) | payer BC, SELFPAY ==
[2023-10-02 12:23] LABS: Abs Immature Grans 0.08 10^3/uL (0.0-0.06); Absolute Basophil Count 0.07 10^3/uL (0.0-0.2); Absolute Eosinophil Count 0.16 10^3/uL (0.0-0.7); Absolute Lymphocyte Count 1.16 10^3/uL (1.2-3.4); Absolute Monocyte Count 0.37 10^3/uL (0.1-0.8); Absolute Neutrophil Count 2.87 10^3/uL (1.2-6.7); Basophils % 1.5; Eosinophils % 3.4; HCT 48.9 % (40.0-50.0); Immature Grans % 1.7; Lymphocytes % 24.6; MCHC 32.7 % (32.0-36.0); MCV 89 fL (80-95); MPV 9.5 fL (8.0-11.0); Monocytes % 7.9; Neutrophils % 60.9; Platelet Count 255 10^3/uL (130-400); RBC 5.51 10^6/uL (4.36-5.78); RDW-SD 45.3 fL; WBC 4.71 10^3/uL (4.4-10.8)
[2023-10-02 12:38] LABS: Hemoglobin A1C 5.3 % (<5.7)
[2023-10-02 12:57] LABS: Vitamin D 25 Total 15.2 ng/mL (30-100)
[2023-10-02 13:03] LABS: ALT 29 U/L (16-63); AST 18 U/L (15-37); Albumin 3.9 g/dL (3.4-5.0); Alkaline Phosphatase 92 U/L (46-116); Anion Gap 6.3 mmol/L (3-11); BUN 15 mg/dL (7-18); Bilirubin, Total 1.9 mg/dL (0.2-1.0); CO2 30.7 mmol/L (21.0-32.0); Calcium 8.8 mg/dL (8.5-10.1); Calculated LDL 81 mg/dL (<100); Chloride 104 mmol/L (98-107); Cholesterol 142 mg/dL (<200); Estimated GFR 86.16 (mL/min/1.73m2); Glucose 122 mg/dL (74-106); HDL Cholesterol 42 mg/dL (40-60); Potassium 3.8 mmol/L (3.5-5.1); Sodium 141 mmol/L (136-145); TSH 1.25 uIU/mL (0.36-3.74); Total Protein 7.1 g/dL (6.4-8.2); Triglyceride 99 mg/dL (<150); Vitamin B12 299 pg/mL (193-986)
[2023-10-05 15:49] LABS: Insulin, Free 21 mcIU/mL (3 - 25); Insulin, Total 21 mcIU/mL (3 - 25)
== END 2023-10-02 01:02 | disposition home or self-care (01) ==
LOC: LOS 01:01
PROVIDERS: PCP Family Medicine; Visit Provider Family Medicine
DX: E66.01 Morbid (severe) obesity due to excess calories (principal); Z68.41 Body mass index [BMI] 40.0-44.9, adult
CPT/HCPCS: 36415; 80053; 80061; 82306; 83525; 83527; 82607; 83036; 84443; 85025

== ENCOUNTER → 2023-10-15 01:16 | Outpatient (CLI) | payer BC, SELFPAY ==
--- NOTE | 2023-10-15 06:45 | DI.MRI_ITS ---
Exam(s) MR LOWER JOINT RT WO EXAM: MR LOWER JOINT RT WO CLINICAL HISTORY: PAIN,internal derangement rt knee, m23.91. TECHNIQUE: Multiplanar multisequence MRI was performed. COMPARISON: CR XR KNEE RT 3V AP,LAT,PHUONG from 12/07/2022 FINDINGS: BONES: There is no fracture or contusion pattern. Subchondral cysts are seen in the tibial plateau. JOINTS: There is thinning of the articular cartilage in the lateral patellar facet with mild subchond ral edema. There is also mild thinning of the articular cartilage in the medial femoral tibial joint with subchondral edema present. There is a small joint effusion. TENDONS: Extensor mechanism: Unremarkable. Medial retinaculum: Unremarkable. Lateral retinaculum: Unremarkable. Popliteus: Unremarkable. MUSCLES: Unremarkable. MENISCI: The posterior horn of the medial meniscus has abnormal signal and is decreased in size. The re is also abnormal signal seen in the body of the medial meniscus. The findings are suspicious for a tear. The lateral meniscus is unremarkable. SOFT TISSUES: There is a moderate-sized popliteal cyst. There is edema seen around the popliteal cys t and extending in the soft tissues distally. The findings may represent a ruptured popliteal cyst. LIGAMENTS: Anterior Cruciate: Unremarkable. Posterior Cruciate: Unremarkable. Medial Collateral:Unremarkable. Lateral Collateral: Unremarkable. OTHER: IMPRESSION: 1. Tear of the body and posterior horn of the medial meniscus. 2. Popliteal cyst with fluid seen surrounding the popliteal cyst and extending distally. This may re present a ruptured popliteal cyst. 3. Degenerative changes in the knee particularly involving the lateral patellofemoral joint and the m edial femoral tibial joint. 4. No evidence of a ligament tear. DATA REPOSITORY:
== END ==
PROVIDERS: PCP Family Medicine; Visit Provider Student in an Organized Health Care Education/Training Program
DX: M23.221 Derangement of posterior horn of medial meniscus due to old tear or injury, right knee (principal); M25.561 Pain in right knee
CPT/HCPCS: 73721

== ENCOUNTER 2023-11-23 11:45 | Outpatient (CLI) | payer BC, SELFPAY ==
--- NOTE | 2023-11-23 10:45 | DI.RAD_ITS ---
Exam(s) XR STANDING ALIGNMENT EXAM: XR STANDING ALIGNMENT CLINICAL HISTORY: TKR planning. TECHNIQUE: 2D digital imaging was performed. Four images were obtained. COMPARISON: CR LEFT KNEE 3 VIEW COMPLETE from 04/12/2016 CR LEFT KNEE LIMITED 1 OR 2 VIEWS from 05/01/2016 CR XR KNEE RT 3V AP,LAT,PHUONG from 12/07/2022 FINDINGS: BONES: The hips are well maintained. There is mild narrowing of the medial joint compartment of the left knee. The right knee appears well maintained. The ankles are well maintained.There is no signi ficant leg length discrepancy. SOFT TISSUE: Normal. IMPRESSION: Mild narrowing in the medial compartment of the left knee. DATA REPOSITORY: RADIATION DOSE DELIVERED:
== END 2023-11-23 11:46 | disposition home or self-care (01) ==
LOC: DIORS 11:46
PROVIDERS: PCP Family Medicine; Visit Provider Physician Assistant
DX: M17.11 Unilateral primary osteoarthritis, right knee (principal)
CPT/HCPCS: 77073

== ENCOUNTER 2023-12-04 04:51 | Outpatient (CLI) | payer BC, SELFPAY ==
[2023-12-04 09:15] LABS: HCT 47.7 % (40.0-50.0); HGB 15.9 g/dL (13.5-17.5); MCH 29.1 pg (27.0-33.0); MCHC 33.3 % (32.0-36.0); MCV 87 fL (80-95); MPV 8.9 fL (8.0-11.0); Platelet Count 245 10^3/uL (130-400); RBC 5.47 10^6/uL (4.36-5.78); RDW 13.7 % (11.8-14.1); RDW-SD 43.9 fL; WBC 6.94 10^3/uL (4.4-10.8)
[2023-12-04 09:26] LABS: Anion Gap 7.6 mmol/L (3-11); BUN 19 mg/dL (7-18); CO2 28.4 mmol/L (21.0-32.0); Calcium 9.4 mg/dL (8.5-10.1); Chloride 106 mmol/L (98-107); Estimated GFR 86.16 (mL/min/1.73m2); Glucose 144 mg/dL (74-106); Sodium 142 mmol/L (136-145)
== END 2023-12-04 04:52 | disposition home or self-care (01) ==
LOC: LBO 04:51
PROVIDERS: PCP Family Medicine; Visit Provider Student in an Organized Health Care Education/Training Program
DX: M25.561 Pain in right knee (principal); M17.11 Unilateral primary osteoarthritis, right knee; Z01.818 Encounter for other preprocedural examination; Z01.812 Encounter for preprocedural laboratory examination
CPT/HCPCS: 36415; 80048; 85027

== ENCOUNTER 2023-12-11 07:34 | Observation (INO) | payer BC, SELFPAY ==
[2023-12-11] VITALS (17 sets, daily range): BP systolic 107–172; BP diastolic 62–91; PULSE 67–95; RESP 12–22; TEMP 36–37; O2SAT 92–96; BMI 41.8
--- NOTE | 2023-12-11 07:45 | PDOC.DSDIS_ITS ---
Date of service: 12/11/23 Time of Service: 07:49 Discharge Plan Disposition Patient Disposition: Home Condition: Good Discharge Details Reason For Visit: Right knee DJD Admit Date/Time: 12/11/23 07:34 Admit Provider: David Heard Attending Provider: David Heard Primary Care Provider: Autumn Connor Hospital Course Hospital Course: Patient was admitted to the medical/surgical floor following the procedure due to somnolence. Otherwise, the surgery was tolerated well without any notable medical, surgical, or anesthetic complications. Mobilization began postoperatively. He was voiding spontaneously. Vitals were stable. Physical therapy worked with the patient and was cleared for discharge home. No acute medical issues. Pain was controlled on oral regimen. Home Meds and New Rx's Prescriptions: New docusate sodium [Colace] 100 mg capsule 100 mg PO BID Qty: 30 0RF Continued allopurinol 300 mg tablet 300 mg PO DAILY Qty: 90 3RF venlafaxine 150 mg capsule,extended release 24hr 150 mg PO QAM Qty: 90 3RF metformin 500 mg tablet extended release 24 hr 2,000 mg PO QPM methylphenidate HCl [Ritalin LA] 40 mg capsule,ER biphasic 50-50 40 mg PO QAM MDD 50mg Qty: 28 0RF methylphenidate HCl [Ritalin LA] 40 mg capsule,ER biphasic 50-50 40 mg PO QAM MDD 40 mg Qty: 28 0RF methylphenidate HCl [Ritalin LA] 40 mg capsule,ER biphasic 50-50 40 mg PO QAM MDD 40 mg Qty: 28 0RF venlafaxine 75 mg tablet extended release 24hr 75 mg PO QAM Qty: 90 1RF triamcinolone acetonide 0.5 % cream 1 applic Topical BID PRN Qty: 3 3RF sildenafil [Viagra] 100 mg tablet 100 mg PO DAILY PRN (Reason: sexual activity) Qty: 10 2RF Rx Instructions: administer 1/2 to 1 tablet 30 minutes to 4 hours before activity doxazosin 4 mg tablet 4 mg PO QHS Qty: 30 12RF acetylcysteine [NAC] 600 mg capsule 600 mg PO DAILY Discontinued indomethacin 50 mg capsule 50 mg PO TID PRN (Reason: gout) Qty: 20 2RF Rx Instructions: take one capsule 3 times a day with food for 1 week - repeat if needed No Action dexamethasone 4 mg tablet 4 mg PO DAILY Qty: 2 0RF Rx Instructions: Take one tablet once daily for two days celecoxib [Celebrex] 200 mg capsule 200 mg PO BID PRN (Reason: pain) Qty: 60 0RF Rx Instructions: Take one tablet twice daily for pain and inflammation aspirin 81 mg tablet,delayed release (DR/EC) 81 mg PO BID 30 Days Qty: 60 0RF acetaminophen 500 mg tablet 1,000 mg PO Q8H PRN Qty: 90 0RF Rx Instructions: Take two tablets up to every 8 hours as needed for pain gabapentin 300 mg capsule 300 mg PO QHS Qty: 14 0RF Rx Instructions: Take one tablet at bedtime pantoprazole 40 mg tablet,delayed release (DR/EC) 40 mg PO DAILY Qty: 14 0RF oxycodone 5 mg tablet 5 mg PO Q4H MDD 6 tabs PRN (Reason: pain) Qty: 18 0RF Rx Instructions: Take one tablet up to every 4 hours as needed for severe postoperative pain Discharge Instructions Additional Instructions: Total Knee Discharge Instructions Activity: The most important activity is to walk and to work on gentle motion (both flexion and extension). You should try to take short walks a few times a day. It is important that when resting you work on keeping the knee straight. Avoid putting a pillow behind the knee as this will encourage flexion. Work on range of motion exercises as provided by Physical Therapy. - Start outpatient physical therapy within 2 weeks. - You should wear the VALENTINA hose on both legs for 2 weeks. You may remove these at night. You may also use any compression sock in place of the VALENTINA hose. - Utilize [employer] to review exercises, see videos on exercises and obtain basic information pertaining to your surgery and your recovery. Dressing: Remove the Homar wrap by 2 days after your surgery and put on the VALENTINA stocking given to you from the hospital. Keep the surgical dressing (underneath the HOMAR wrap) in place for at least one week. After the first week it may be removed and replaced with light gauze and tape or nothing. The wound and dressing may get wet after 3 days but avoid soaking the dressing or otherwise it will need to be changed. Many people prefer covering the dressing with cling wrap (saran wrap) to minimize it from getting soaked. If it gets wet, just pat dry. If it starts to peel off then it will need to be changed. Medications: - You should take Tylenol and anti-inflammatory Celebrex as your primary pain control medications. If the Celebrex is too expensive or not covered, please call the office for another alternative (Advil/Ibuprofen or Naproxen/Aleve) - You have been prescribed a stronger pain medication Oxycodone for breakthrough pain, take as needed as prescribed. - You have also been prescribed a stomach acid reduction agent Pantoprozole to help reduce stomach acid and reflux. - You have been prescribed Gabapentin to take at night for restlessness and nerve pain. - You will be taking Aspirin 81mg twice a day for DVT prevention unless instructed otherwise. - You have also been prescribed Decadron to take to control post-operative nausea and pain. You will start this tomorrow. - If you have constipation you should take Colace (which has been prescribed) or Miralax (which is available [id number]). It takes most people 3-4 days to have a bowel movement. Follow-up: 2 weeks If you have any acute concerns or questions, please do not hesitate to contact the office at [phone]. You may contact Dr. Heard with any questions after hours through the hospital at [phone] or on his cell phone at [phone]. Stand Alone Forms: Anesthesia Discharge Inst., Angle.Nerve Block Instructions, Jewel Blackburn (DSU) Referrals: David Heard MD [ [facility] STAFF PHYSICIAN] - 12/24/23 10:00 am Activity:: Activity as Tolerated Equipment/Supplies:: Walker Diet:: As Tolerated Discharge Orders Discharge Orders: Discharge Order (Routine); Ordered 12/11/23 Ordered By: Lorraine Dixon DS: Diagnosis Discharge Diagnosis (1) Primary osteoarthritis of right knee: Status: Chronic
--- NOTE | 2023-12-11 08:51 | W.ANESPRE ---
General Info Date of Service Date Performed: 12/11/23 Height: 6 ft Weight: 140 kg Body Mass Index (BMI): 41.8 Surgical Procedure: Operation Date: 12/11/23 11:10 Proposed Procedure Side Surgeon p Knee Total Arthroplasty, Cementless CR Right David Heard MD Meds Allergies and Home Medications Allergies Allergy/AdvReac Type Severity Reaction Status Date / Time bupropion AdvReac Intermediate worsening Verified 12/10/23 11:46 depression meperidine HCl [From Demerol] AdvReac Intermediate vomiting Verified 12/10/23 11:46 Home Medication Medication Instructions Recorded triamcinolone acetonide 0.5 % 1 applic topical BID PRN #3 tubes 01/28/19 topical cream sildenafil 100 mg tablet (Viagra) 100 mg PO DAILY PRN sexual 11/01/21 activity #10 tabs allopurinol 300 mg tablet 300 mg PO DAILY #90 tabs 03/02/23 venlafaxine 150 mg 150 mg PO QAM #90 caps 08/01/23 capsule,extended release 24 hr methylphenidate HCl 40 mg biphasic 40 mg PO QAM #28 caps 10/15/23 50-50 capsule,extended release (Ritalin LA) methylphenidate HCl 40 mg biphasic 40 mg PO QAM #28 caps 10/15/23 50-50 capsule,extended release (Ritalin LA) methylphenidate HCl 40 mg biphasic 40 mg PO QAM #28 caps 10/15/23 50-50 capsule,extended release (Ritalin LA) venlafaxine 75 mg tablet,extended 75 mg PO QAM #90 tabs 10/15/23 release 24 hr doxazosin 4 mg tablet 4 mg PO QHS #30 tabs 10/16/23 metformin 500 mg tablet,extended 2,000 mg PO QPM 11/23/23 release 24 hr acetylcysteine 600 mg capsule (NAC) 600 mg PO DAILY 12/10/23 acetaminophen 500 mg tablet 1,000 mg (2 x 500 mg) PO Q8H PRN 12/11/23 pain #90 tabs aspirin 81 mg tablet,delayed 81 mg PO BID 30 days #60 tabs 12/11/23 release celecoxib 200 mg capsule (Celebrex) 200 mg PO BID PRN #60 caps 12/11/23 dexamethasone 4 mg tablet 4 mg PO DAILY #2 tabs 12/11/23 docusate sodium 100 mg capsule 100 mg PO BID #30 caps 12/11/23 (Colace) gabapentin 300 mg capsule 300 mg PO QHS #14 caps 12/11/23 oxycodone 5 mg tablet 5 mg PO Q4H PRN #18 tabs 12/11/23 pantoprazole 40 mg tablet,delayed 40 mg PO DAILY #14 tabs 12/11/23 release Current Visit Medications: Current Medications Generic Name Dose Route Start Last Admin Trade Name Freq PRN Reason Stop Dose Admin Acetaminophen 1,000 mg 12/11/23 06:00 Acetaminophen 500 Mg Tab PO 12/11/23 16:00 PREOP THIEN Celecoxib 400 mg 12/11/23 06:00 Celecoxib 200 Mg Cap PO 12/11/23 16:00 PREOP THIEN Gabapentin 300 mg 12/11/23 06:00 Gabapentin 300 Mg Cap PO 12/11/23 16:00 PREOP THIEN Hydromorphone HCl 0.5 mg 12/11/23 07:33 Hydromorphone 2 Mg/Ml Syr IVP 01/10/24 07:32 Q2H PRN PRN Tranexamic Acid 1,000 mg/ 60 mls @ 360 mls/hr 12/11/23 06:00 Sodium Chloride IVPB 12/11/23 16:00 PREOP THIEN Ringer's Solution 1,000 mls @ 80 mls/hr 12/11/23 06:00 IV 12/11/23 23:59 INFUSION THIEN Cefazolin Sodium 3,000 mg/ 100 mls @ 200 mls/hr 12/11/23 06:00 Sodium Chloride IVPB 12/11/23 23:59 PREOP THIEN Cefazolin Sodium/Dextrose 1 gm in 50 mls @ 100 mls/hr 12/11/23 08:00 Ancef Duplex IVPB 12/12/23 00:29 Q8H [facility] IV Miscellaneous Supplies 1 each 12/11/23 06:00 Iv Access IV 12/11/23 23:59 DIRECTED THIEN Oxycodone HCl 0 mg 12/11/23 07:33 Oxycodone 5 Mg Tab PO 01/10/24 07:32 Q3H PRN PRN Pain Sodium Chloride 0 ml 12/11/23 06:00 Normal Saline Flush 10 Ml Syr IV 12/11/23 23:59 PRN PRN Sodium Chloride 0 ml 12/11/23 06:00 Normal Saline 10 Ml Vial IJ 12/11/23 23:59 DIRECTED PRN Sterile Water 0 ml 12/11/23 06:00 Water,Injection,Sterile 10 Ml Vial IJ 12/11/23 23:59 DIRECTED PRN PFSH Active Problems Active Problems: Problem Status Onset Code Diabetes E11.9 Tubular adenoma ~04/09/23 D36.9 Primary osteoarthritis of right knee M17.11 Essential hypertension I10 Obesity, Class III, BMI 40-49.9 (morbid obesity) E66.01 Umbilical hernia K42.9 Chronic post-traumatic stress disorder (PTSD) F43.12 Binge eating disorder F50.81 ADHD (attention deficit hyperactivity disorder), combined type F90.2 Major depress dis, severe F32.2 Sensorineural hearing loss, bilateral 12/24/17 H90.3 Obstructive sleep apnea syndrome 12/17/15 G47.33 Gout M10.9 Medical History Medical History Tinnitus, bilateral Head trauma Rotator cuff impingement syndrome of right shoulder Tubulovillous adenoma (05/03/16) Varicose veins of lower extremity left great saphenous varicosity Tubular adenoma of colon (12/14/17) multiple Fatty liver disease, nonalcoholic Family history of prostate cancer (10/10/17) Complex tear of medial meniscus of left knee as current injury (10/20/16) Cholelithiasis NOS asymtomatic Surgical History Surgical History S/P left knee arthroscopy (~2015) Hx of vein stripping S/P colonoscopy (~04/09/23) 08/04/19 2016- Tubulovillous adenoma Status post inguinal hernia repair Hydrocele left Tobacco Smoking/Tobacco Use Status: Never Passive smoking exposure: Yes Second hand exposure: Yes Alcohol Alcohol Intake: current Alcohol intake frequency: a few times a week Alcohol type: beer Substance Use Substance use: Never Substance use type: does not use Vital Signs and Lab Results Vital Signs Most Recent Vital Signs in EMR: Most Recent Vital Signs Temp Pulse Resp BP Pulse Ox 36.2 C L 67 16 161/73 H 95 12/11/23 08:44 12/11/23 08:44 12/11/23 08:44 12/11/23 08:44 12/11/23 08:44 Lab Results Blood Type / Crossmatch: No Data to Display Complete Blood Count: White Blood Count 6.94 10^3/uL (4.4-10.8) 12/04/23 09:05 Red Blood Count 5.47 10^6/uL (4.36-5.78) 12/04/23 09:05 Hemoglobin 15.9 g/dL (13.5-17.5) 12/04/23 09:05 Hematocrit 47.7 % (40.0-50.0) 12/04/23 09:05 Platelet Count 245 10^3/uL (130-400) 12/04/23 09:05 Complete Metabolic Panel: Sodium 142 mmol/L (136-145) 12/04/23 09:05 Potassium 4.0 mmol/L (3.5-5.1) 12/04/23 09:05 Chloride 106 mmol/L (98-107) 12/04/23 09:05 Carbon Dioxide 28.4 mmol/L (21.0-32.0) 12/04/23 09:05 BUN 19 mg/dL (7-18) H 12/04/23 09:05 Creatinine 1.0 mg/dL (0.70-1.30) 12/04/23 09:05 Est GFR (CKD-EPI 2020) 86.16 (mL/min/1.73m2) 12/04/23 09:05 Calcium 9.4 mg/dL (8.5-10.1) 12/04/23 09:05 Glucose 144 mg/dL (74-106) H 12/04/23 09:05 Liver Function Panel: No Data to Display Coagulation Panel: No Data to Display Cardiac Panel: No Data to Display Arterial Blood Gas: No Data to Display Venous Blood Gas: No Data to Display Pancreas Panel: No Data to Display Thyroid Panel: No Data to Display Infectious Disease: No Data to Display Blood Cultures: No Data to Display Toxicology Panel: No Data to Display Anesthesia Assessment and Plan Anesthesia History Personal History: No History of Anesthesia Complications Family History: No Family History of Anesthesia Complications Exercise Tolerance Exercise Tolerance: Metabolic Equivalents>4 Pertinent Negatives Pertinent Negatives: No Symptoms of GERD Cardiac & Pulmonary Exam Cardiac Exam: Normal S1/S2 Heart Sounds Pulmonary Exam: Clear Bilateral Breath Sounds Implantable Cardiac Device Does patient have a Pacemaker or an ICD?: No Airway Exam Known Difficult Airway: No Mallampati Class: 2 Mouth Opening: Normal (> 3cm) Thyromental Distance: Greater than 3 cm Neck Range of Motion: Full ROM Neck Circumference: Normal Teeth Condition: Normal Dentition ASA Classification ASA Score: ASA 3 Emergency Case?: No NPO Status NPO Status: NPO Clears >2 hours, Solids >8 hours Anesthesia Plan Resuscitation Status: Full Code Anesthesia Technique: Spinal Anesthesia Airway Planned: Natural Airway Pain Management: Surgeon and patient request nerve block Monitors Used: Standard Monitors
[2023-12-11] MEDS: Lactated Ringers 1,000 ML 80 ML IV ×2 (09:13→11:43)
[2023-12-11] MEDS: Celecoxib 200 MG CAP 400 MG PO (09:15)
[2023-12-11] MEDS: Acetaminophen 500 MG TAB 1000 MG PO ×2 (09:15→20:21)
[2023-12-11] MEDS: Gabapentin 300 MG CAP PO (09:15)
--- NOTE | 2023-12-11 09:46 | W.ANESNERVE ---
Nerve Block Single Injection Procedure Date and Time Date Performed: 12/11/23 Procedure Start: 09:35 Location Where Procedure Performed Procedure Location: Operating Room Procedure Stop: 09:40 Reason Performed: Postoperative Analgesia Requesting Provider: David Heard Timeout Performed Timeout Performed: No Monitoring Used ECG, Blood Pressure, SpO2 and See EMR for corresponding vital signs Sterility Sterility: Hand Hygiene, Surgical Cap, Surgical Mask, Sterile Gloves, Eye Protection and Chlorhexidine Sedation Given During Procedure Sedation Given (Indicate Dose Given): Versed IV Dose:: 3mg IVP Patient Mental Status Patient Mental Status: Sedate with meaningful communication Nerve Block 1st Nerve Block: Laterality: Right Block Type: Adductor Canal Ultrasound Image Saved?: Yes Needle / Catheter Used: 120mm SonoPlex II Local Anesthetic Bolus (Indicate Dose Given): Lidocaine used for local infiltration of skin, Injected in 3-5ml increments after negative blood aspiration and Ropivacaine 0.5% Dose:: 0.5%/25cc (125mg) Additives (Indicate Dose Given): Epinephrine to make 1:200,000 (5mcg/ml) Dose:: 125mcg (1:200,000) Ultrasound: Sterile probe cover and gel used Nerve Stimulator: Not Used Paresthesia: None Procedure Tolerated: No Complications and Patient tolerated well Procedure Outcome: Successful Performed By: Edi Magallon
[2023-12-11] MEDS: ceFAZolin 3,000 MG in Normal Saline 100 ML 200 MG IVPB (10:22)
[2023-12-11] MEDS: Normal Saline 10 ML VIAL IJ (12:53)
[2023-12-11] MEDS: HYDROmorphone 2 MG/ML SYR IVP ×2 (12:53→13:03)
[2023-12-11] MEDS: fentaNYL 100 MCG/2 ML VIAL IVP (13:16)
[2023-12-11] MEDS: Naloxone 0.4 MG/ML VIAL (15:10)
[2023-12-11] MEDS: Normal Saline Flush 10 ML SYR IV ×3 (15:22→21:11)
[2023-12-11] MEDS: Droperidol 5 MG/2 ML VIAL 0.625 MG IVP (15:23)
--- NOTE | 2023-12-11 15:58 | W.ANESPOSTOP ---
Postoperative Evaluation Date, Time and Location Date Performed: 12/11/23 Time Performed: 15:58 Patient Location: Day Surgery Unit Vital Signs Most Recent Imported Vital Signs: Most Recent Vital Signs Temp Pulse Resp BP Pulse Ox 36.2 C L 83 12 150/82 H 93 12/11/23 15:44 12/11/23 15:44 12/11/23 15:44 12/11/23 15:44 12/11/23 15:44 Pain Score Most Recent Pain Score: Most Recent Pain Score Pain Level 1 12/11/23 14:41 Assessment Mental Status: Arousable with meaningful communication Airway and Respiratory Function: Patent airway with normal (patient baseline) respiratory exam Cardiovascular Function: Hemodynamically Stable Hydration Status: Adequately Hydrated Nausea & Vomiting: No Nausea or Vomiting Pain: Pt. Denies Any Pain Peripheral Nerve Block: Regional nerve block not resolved at time of post operative discharge
[2023-12-11] MEDS: ceFAZolin 1 GM/50 ML BAG IVPB (17:29)
--- NOTE | 2023-12-11 17:58 | W.PM.OP ---
Date of service: 12/11/23 Time of Service: 10:30 Operative Note Operative Note DATE OF PROCEDURE: 12/11/23 PRE-OP DIAGNOSIS: Right Knee Osteoarthritis POST-OP DIAGNOSIS: same PROCEDURE: Right Total Knee Replacement SURGEON: David Heard MANUFACTURING PROJECT MANAGER: Lorraine Dixon ANESTHESIA TYPE: Spinal Refer to Anesthesia Record ESTIMATED BLOOD LOSS: 150 PATHOLOGY: none sent TOURNIQUET TIME: 0 COMPLICATIONS: None Patient was transported to: PACU Patient's condition: stable Implants: 1. Depuy Attune Cementless Cruciate Retaining Femoral Component, Size 8 2. Depuy Attune Cementless Fixed Bearing Tibial Component, Size 7 3. Depuy Attune 8x6 CR/FB Poly 4. Depuy Attune Patellar Component, Size 38 Indications: I have seen Celso in clinic for symptoms of knee arthritis, confirmed with radiographic findings. Celso has exhausted nonoperative methods and was having significant limitations in daily function and desired better function and less pain. I discussed the technical details of a knee replacement. I explained the risks of the procedure to include, but not limited to, bleeding, infection, pain, stiffness, fracture, damage to nerves and vessels, damage to muscles and tendons, loosening, need for repeat procedure, blood clot and cardiopulmonary demise. Despite these risks, Celso elected to proceed. Findings: There was an area of complete cartilage loss over the medial, distal femur. Additionally there was a large fissure of the lateral tibial plateau with a loose chondral flap. Significant chondromalacia of the patella. Procedure Description: Celso was greeted in the preoperative holding area where the correct side was identified and marked. The consent was reviewed with the patient and signed. The history and physical was updated. All questions were answered. Preoperative medications were administered: Acetaminophen 1000mg, Celebrex 400mg, and Gabapentin 300mg. An adductor canal block was then administered by the anesthesia team in the PACU. Celso was taken back to the operating room. A spinal anesthestic was then administered. The patient was placed into the supine position on the operating room table. A nonsterile tourniquet was placed high onto the leg but only used for cementing. Posts were placed for positioning during the procedure. All bony prominences were well padded. Prophylactic antibiotics in the form of Cefazolin were administered. 1g of Tranxemic Acid was given intravenously within 30 minutes of incision. The right leg was then prepped with Chloraprep and draped in a standard fashion with impervious stockinette. A second prep with Chloraprep was performed prior to application of Iodine impregnated skin protection. A timeout to confirm correct identity, side and site, procedure, allergies, anesthesia, and medical concerns was performed. With the knee in some flexion, a midline incision was made overlying the knee. Full thickness skin flaps were raised once the extensor mechanism was encountered. These were raised medially and laterally. Any bleeding was controlled with electrocautery. Once the extensor mechanism was fully exposed, a medial parapatellar arthrotomy was performed in a flexed position. All bleeding from the arthrotomy and the geniculate arteries was coagulated. A medial subperiosteal peel was performed with electrocautery to the midcoronal plane. The fat pad was removed while keeping the patellar tendon protected. The anterior distal femur synovium was removed for later visualization. The ACL and PCL were resected and the anterior horn of the lateral meniscus was transected. The knee was then flexed with the patella everted. Large osteophytes from the tibia were removed. Large osteophytes from the femur were removed. Using a step drill, and based on preoperative templating, the femoral canal was entered. This was done with a step drill without any difficulty. The intramedullary distal femoral cut guide was inserted, set to a 6 degree valgus cut and 9mm cut thickness. The distal femoral cut guide was then held in position and pinned. With the soft tissues protected, the distal cut was performed. This was passed over a few times to ensure a planar cut. I then turned attention to the tibia. The extramedullary guide was placed onto the leg. The distal aspect was slid medial to adjust for position of center of ankle and stay in line with shaft of the tibia. Approximately 3-5 degrees of posterior slope was kept in the proximal cutting guide. The center of the guide was aligned with the PCL. The stylus was used to assess cut thickness. The medial side, most involved side, was set for a 5mm cut. This was then held in position and pinned into place with 2 additional pins and a cross pin for stability. The medial and lateral collateral ligaments were protected and the cut was performed. With this completed, it was assessed and noted to be of appropriate dimensions. The guide was removed. A spacer block was inserted and the knee was brought into extension. The 6mm spacer block provided full extension, without hyperextension and with stability of both the medial and lateral collateral ligaments was assessed. The pins from the femur and the tibia were then removed. The distal femur was then sized. The anterior stylus was placed onto the lateral ridge of the anterior femur. This indicated a size 7 femur. The external rotation of the guide was adjusted to 3 degrees to match the epicondylar axis, perpendicular to [place]?s line. The 4-in-1 cutting guide was the placed. The posterior medial femur cut was evaluated and appeared of good thickness. The spacer block was inserted underneath the cutting guide and stability was confirmed in 90 degrees of flexion. An radha wing was used to confirm appropriate position of the anterior cut to avoid notching. This cutting guide was ensured to be flush on the cut surface and then pinned into place with headed pins. While protecting the soft tissues, quad tendon, and collateral ligaments, the anterior and posterior cuts were performed with a saw. The central two pins were removed and the posterior and anterior chamfers were cut next. The notch-cutting guide was placed. This was pinned to lateralize the femoral component as much as possible while keeping it flush on the cut surface. This was then pinned into position. A reciprocating saw was used to make the notch cut. A rasp smoothed the cut surfaces. The medial and lateral menisci were removed. A trial femoral component was then inserted, impacted down to the cut surfaces, and the lug holes were drilled. A provisional trial tibial component was placed and the knee was brought through range of motion. There was noted to be excellent extension and flexion. There was no significant instability. The patella was tracking without thumbs. A size 6mm polyethylene component provided the best range of motion and stability with less than 2mm gapping with medial and lateral stress and full extension without significant hyperextension. The tibial cut surface was fully exposed. The tibia was then sized as a 7. The tibia had been previously marked during trialing to correspond to the center of the tibial component to help with rotation. The trial was aligned to this wu, approximately rotated to the medial 1/3rd of the tibial tubercle. The trial was pinned into place. The tibia was prepared with a reamer and a keel punch and lug holes. The knee was then brought into extension and the patella was measured as 25mm. Using the patellar clamp and cut guide, this was resected to a flat surface with at least 13mm of thickness remaining. The size 38 patella fit the best. This was oriented and then clamped into position. The lugs were drilled. The trial components were removed. The final components were opened on the back table. The periosteal and capsular tissues, especially posteriorly, around the knee were then systematically injected with a periarticular cocktail consisting of 246mg of Ropivacaine, 0.5mg of Epinephrine, 0.08mg of Clonidine, and 30mg of Ketorolac, diluted to 100cc. On the back table, with the implants opened, the cement was mixed. One batch of high viscosity cement was prepared with vacuum assistance. After the cement was ready a small amount was placed on the cut surface of the patella and the patellar button was clamped into position and held. While the cement was hardening, the cementless knee components were placed. Starting with the tibial component, the tibia was subluxed anteriorly and the lug holes of the component were lined up. The tibia was then impacted with an impactor and mallet until the tibial component was in contact with the tibia. The final polyethylene component was inserted. Then, the femoral component was inserted. The lug holes were aligned and the component was impacted into position. The knee was irrigated with Irrisept chlorhexidine solution. This was allowed to sit in the knee for 3 minutes and then it was irrigated out with saline. After the cement had finally cured, approximately 15min, the clamp was removed from the patella and the knee was taken through range of motion. The patella was tracking with a no-thumbs technique. The capsule was then reapproximated with a No. 1 Vicryl at multiple locations. The capsule was finally closed with a No. 2 Stratafix, barbed suture. The second dosing of 1g TXA was started. Deep tissues were then reapproximated with 0 Vicryl and 2-0 Vicryl. The skin was closed with a running 3-0 Monocryl in a subcuticular fashion. This was reinforced with skin glue. A Mepilex silver dressing was applied along with a [id number] KERON wrap. A CryoCuff was applied. Celso was transferred to the hospital bed without difficulty an suffering no apparent complication. Celso has a good prognosis. Physical therapy will start today and without restrictions, weight-bearing as tolerated. Aspirin 81mg BID will be used for DVT prophylaxis.
[2023-12-11] MEDS: Celecoxib 200 MG CAP PO (20:22)
[2023-12-11] MEDS: Doxazosin 2 MG TAB 4 MG PO (21:11)
[2023-12-12] MEDS: Normal Saline Flush 10 ML SYR IV ×2 (00:34→01:30)
[2023-12-12] MEDS: ceFAZolin 1 GM/50 ML BAG IVPB (00:34)
[2023-12-12 03:21] VITALS: BP 115/69; PULSE 91; RESP 19; TEMP 36.9; O2SAT 93
[2023-12-12] MEDS: oxyCODONE 5 MG TAB PO ×2 (04:34→10:06)
--- NOTE | 2023-12-12 07:59 | W.PM.DS.N ---
Date of service: 12/12/23 Time of Service: 07:59 DS: Diagnosis Discharge Diagnosis (1) Primary osteoarthritis of right knee: Status: Chronic Discharge Plan Disposition Patient Disposition: Home Condition: Good Discharge Details Reason For Visit: Right knee DJD Admit Date/Time: 12/11/23 07:34 Admit Provider: David Heard Attending Provider: David Heard Primary Care Provider: Autumn oCnnor Hospital Course Hospital Course: Patient was admitted to the medical/surgical floor following the procedure due to somnolence. Otherwise, the surgery was tolerated well without any notable medical, surgical, or anesthetic complications. Mobilization began postoperatively. He was voiding spontaneously. Vitals were stable. Physical therapy worked with the patient and was cleared for discharge home. No acute medical issues. Pain was controlled on oral regimen. Home Meds and New Rx's Prescriptions: New docusate sodium [Colace] 100 mg capsule 100 mg PO BID Qty: 30 0RF Continued allopurinol 300 mg tablet 300 mg PO DAILY Qty: 90 3RF venlafaxine 150 mg capsule,extended release 24hr 150 mg PO QAM Qty: 90 3RF metformin 500 mg tablet extended release 24 hr 2,000 mg PO QPM methylphenidate HCl [Ritalin LA] 40 mg capsule,ER biphasic 50-50 40 mg PO QAM MDD 50mg Qty: 28 0RF methylphenidate HCl [Ritalin LA] 40 mg capsule,ER biphasic 50-50 40 mg PO QAM MDD 40 mg Qty: 28 0RF methylphenidate HCl [Ritalin LA] 40 mg capsule,ER biphasic 50-50 40 mg PO QAM MDD 40 mg Qty: 28 0RF venlafaxine 75 mg tablet extended release 24hr 75 mg PO QAM Qty: 90 1RF triamcinolone acetonide 0.5 % cream 1 applic Topical BID PRN Qty: 3 3RF sildenafil [Viagra] 100 mg tablet 100 mg PO DAILY PRN (Reason: sexual activity) Qty: 10 2RF Rx Instructions: administer 1/2 to 1 tablet 30 minutes to 4 hours before activity doxazosin 4 mg tablet 4 mg PO QHS Qty: 30 12RF acetylcysteine [NAC] 600 mg capsule 600 mg PO DAILY Discontinued indomethacin 50 mg capsule 50 mg PO TID PRN (Reason: gout) Qty: 20 2RF Rx Instructions: take one capsule 3 times a day with food for 1 week - repeat if needed No Action dexamethasone 4 mg tablet 4 mg PO DAILY Qty: 2 0RF Rx Instructions: Take one tablet once daily for two days celecoxib [Celebrex] 200 mg capsule 200 mg PO BID PRN (Reason: pain) Qty: 60 0RF Rx Instructions: Take one tablet twice daily for pain and inflammation aspirin 81 mg tablet,delayed release (DR/EC) 81 mg PO BID 30 Days Qty: 60 0RF acetaminophen 500 mg tablet 1,000 mg PO Q8H PRN Qty: 90 0RF Rx Instructions: Take two tablets up to every 8 hours as needed for pain gabapentin 300 mg capsule 300 mg PO QHS Qty: 14 0RF Rx Instructions: Take one tablet at bedtime pantoprazole 40 mg tablet,delayed release (DR/EC) 40 mg PO DAILY Qty: 14 0RF oxycodone 5 mg tablet 5 mg PO Q4H MDD 6 tabs PRN (Reason: pain) Qty: 18 0RF Rx Instructions: Take one tablet up to every 4 hours as needed for severe postoperative pain Discharge Instructions Additional Instructions: Total Knee Discharge Instructions Activity: The most important activity is to walk and to work on gentle motion (both flexion and extension). You should try to take short walks a few times a day. It is important that when resting you work on keeping the knee straight. Avoid putting a pillow behind the knee as this will encourage flexion. Work on range of motion exercises as provided by Physical Therapy. - Start outpatient physical therapy within 2 weeks. - You should wear the VALENTINA hose on both legs for 2 weeks. You may remove these at night. You may also use any compression sock in place of the VALENTINA hose. - Utilize [employer] to review exercises, see videos on exercises and obtain basic information pertaining to your surgery and your recovery. Dressing: Remove the Homar wrap by 2 days after your surgery and put on the VALENTINA stocking given to you from the hospital. Keep the surgical dressing (underneath the HOMAR wrap) in place for at least one week. After the first week it may be removed and replaced with light gauze and tape or nothing. The wound and dressing may get wet after 3 days but avoid soaking the dressing or otherwise it will need to be changed. Many people prefer covering the dressing with cling wrap (saran wrap) to minimize it from getting soaked. If it gets wet, just pat dry. If it starts to peel off then it will need to be changed. Medications: - You should take Tylenol and anti-inflammatory Celebrex as your primary pain control medications. If the Celebrex is too expensive or not covered, please call the office for another alternative (Advil/Ibuprofen or Naproxen/Aleve) - You have been prescribed a stronger pain medication Oxycodone for breakthrough pain, take as needed as prescribed. - You have also been prescribed a stomach acid reduction agent Pantoprozole to help reduce stomach acid and reflux. - You have been prescribed Gabapentin to take at night for restlessness and nerve pain. - You will be taking Aspirin 81mg twice a day for DVT prevention unless instructed otherwise. - You have also been prescribed Decadron to take to control post-operative nausea and pain. You will start this tomorrow. - If you have constipation you should take Colace (which has been prescribed) or Miralax (which is available [id number]). It takes most people 3-4 days to have a bowel movement. Follow-up: 2 weeks If you have any acute concerns or questions, please do not hesitate to contact the office at [phone]. You may contact Dr. Heard with any questions after hours through the hospital at [phone] or on his cell phone at [phone]. Stand Alone Forms: Anesthesia Discharge Inst., Angle.Nerve Block Instructions, Jewel Blackburn ([facility]) Referrals: David Heard MD [ [facility] STAFF PHYSICIAN] - 12/24/23 10:00 am Activity:: Activity as Tolerated Equipment/Supplies:: Walker Diet:: As Tolerated Discharge Orders Discharge Orders: Discharge Order (Routine); Ordered 12/11/23 Ordered By: Lorraine Dixon DS: Summary Time Spent with Patient providing and/or coordinating discharge services: Greater than 30 minutes Status at Discharge Functional status at discharge: uses cane/walker Overall status at discharge: patient is progressing back to baseline Mental Status: mental status grossly normal Speech and Movement: speech and movement normal Mood: congruent mood Affect: normal affect Quality:SDOH Health Related Social Needs: No Data to Display Exam Narrative Exam Narrative: Sitting up in the bed. No acute distress. Alert and orient x 3. Dressings clean dry and intact about the right leg. He is able to straight leg raise. He has intact active quad function. Intact ankle dorsiflexion, plantarflexion, EHL, FHL. Sensation intact light touch over the deep and superficial peroneal nerve and tibial nerve. Psych Mental Status: mental status grossly normal Speech and Movement: speech and movement normal Mood: congruent mood Affect: normal affect DS: Data Vitals/I&O Vitals and I&O: Vital Signs Temperature 36.9 C 12/12/23 03:21 Temperature Source Tympanic 12/12/23 03:21 Pulse 91 H 12/12/23 03:21 Pulse Rhythm Regular 12/11/23 22:39 Respiratory Rate 19 12/12/23 03:21 Respiratory Effort Normal, Non-Labored 12/11/23 22:39 Respiratory Depth Normal 12/11/23 22:39 Respiratory Pattern Normal 12/11/23 22:39 Blood Pressure 115/69 12/12/23 03:21 Blood Pressure Mean 104 12/11/23 09:31 Blood Pressure Position Supine 12/11/23 09:31 Pulse Oximetry 93 12/12/23 03:21 Respiratory End-tidal CO2 40 12/11/23 13:27 Oxygen Delivery Method Cpap 12/12/23 03:21 Oxygen Flow Rate 0 12/11/23 19:36 Fraction of Inspired Oxygen (FIO2) 21 12/11/23 20:39 Pain Level 4 12/12/23 04:34 Comment 9:39am Adductor canal block completed by Joan Magallon CRNA. Pt eyes closed and dozing during procedure. Pt verbally reports he is comfortable and denies metallic taste or ringing in ears/anything unusual post procedure. No issues with the block. Pt provided with warm blankets, made comfortable. Call cooper in reach. 12/11/23 09:31 Intake & Output 12/11/23 12/11/23 12/12/23 11:59 23:59 11:59 Intake Total 1160 / 2335 1175 / 2335 50 / 50 Output Total 150 / 550 400 / 550 350 / 350 Balance 1010 / 1785 775 / 1785 -300 / -300 Weight 140 kg Intake: IV 1160 / 2210 1050 / 2210 50 / 50 Oral 125 / 125 Output: Urine 400 / 400 350 / 350 Emesis 0 / 0 Estimated Blood Loss 150 / 150 Other: Urine Color Yellow Yellow Urine Appearance Clear Emesis Description None Voiding Methods Toilet PFSH All Active Problems Diabetes (Chronic) Tubular adenoma (Acute ~04/09/23) Primary osteoarthritis of right knee (Chronic) s/p R TKA (12/11/23) DEPO MEDROL 07/05/23; 02/05/23 Essential hypertension (Chronic) Obesity, Class III, BMI 40-49.9 (morbid obesity) (Chronic) Umbilical hernia (Chronic) Chronic post-traumatic stress disorder (PTSD) (Chronic) Binge eating disorder (Chronic) ADHD (attention deficit hyperactivity disorder), combined type (Chronic) Major depress dis, severe (Chronic) on venlafaxine and methylphenidate Sensorineural hearing loss, bilateral (Chronic 12/24/17) Obstructive sleep apnea syndrome (Chronic 12/17/15) on CPAP with good effect. Gout (Chronic) Medical History Tinnitus, bilateral Head trauma Rotator cuff impingement syndrome of right shoulder Tubulovillous adenoma (05/03/16) Varicose veins of lower extremity left great saphenous varicosity Tubular adenoma of colon (12/14/17) multiple Fatty liver disease, nonalcoholic Family history of prostate cancer (10/10/17) Complex tear of medial meniscus of left knee as current injury (10/20/16) Cholelithiasis NOS asymtomatic Surgical History S/P left knee arthroscopy (~2015) Hx of vein stripping S/P colonoscopy (~04/09/23) 08/04/19 2016- Tubulovillous adenoma Status post inguinal hernia repair Hydrocele left Family History Father Depression Binge eating Sister Depression Social History Smoking/Tobacco Use Status: Never Second Hand Exposure: Yes Smoking risk assessment performed?: Yes Alcohol Intake: current Alcohol Intake frequency: a few times a week Alcohol type: beer Drug use: Never Substance use type: does not use Caregiver/Support person: No Household members: spouse Housing: house Number of Children: 2 number of grandchildren: 0 Communication Needs: Hard of Hearing Education Level: master's degree Do you need help understanding health information?: Never current occupation: Teaches math at [employer] Pets and animals: Yes Pets and animals: dog(s) Sexually active: No Do you think of yourself as: straight/heterosexual Current gender identity: male What is your relationship status?: How often do you talk on the phone with friends or family?: decline to answer How often do you get together with friends or relatives?: decline to answer How often do you attend temple or presybeterian services?: decline to answer Do you belong to any clubs or organized social groups?: no Panel score (0-1 are the most socially isolated patients): 1 What type of physical activity do you participate in: walking Duration: 15-30 minutes/day Frequency: 1-2 times per week Luzma/Lutheran: Roman Catholic Special luzma needs: No Seatbelt use: always Drive intox or ride w/intox armored truck driver: No Time Spent with Patient Time Spent with Patient: <45 minutes Time was spent: preparing to see the patient(eg.review tests), ordering medications,tests, procedures and counseling the patient
[2023-12-12 08:19] VITALS: BP 109/53; PULSE 90; RESP 16; TEMP 37; O2SAT 95
[2023-12-12] MEDS: Acetylcysteine 600 MG CAP PO (09:00)
[2023-12-12] MEDS: Celecoxib 200 MG CAP PO (09:00)
[2023-12-12] MEDS: Venlafaxine 150 MG CAPCR PO (09:00)
[2023-12-12] MEDS: Venlafaxine 75 MG CAPCR PO (09:00)
[2023-12-12] MEDS: Acetaminophen 500 MG TAB 1000 MG PO (09:01)
[2023-12-12] MEDS: Allopurinol 300 MG TAB PO (09:01)
[2023-12-12] MEDS: Pantoprazole 40 MG TABCR PO (09:02)
--- NOTE | 2023-12-12 10:43 | PT.INIE ---
PT Notes Visit Reasons: Right knee DJD Physical Therapy Inpatient Initial Evaluation Date: 12/12/23 Referring Doctor: Lorraine Dixon PT Orders: PT CONSULT: s/p ortho surgery Precautions: Fall. Standard. Activity as tolerated. WBAT. Patient Profile/Admitting Diagnosis: Celso is 58 yo male that is POD #1 right TKA. He had difficulty staying awake after procedure and was brought to the floor for observation overnight. He is more alert today with mild pain in right knee. PMHX: See EMR Social History/Home Situation: Lives with spouse, 13 steps to enter apartment, independent at baseline. Was doing step to gait on stairs prior to surgery secondary to pain. Equipment Owned/DME: FWW, crutches, cane Subjective: Cleared by nursing to see patient and patient is agreeable to PT. Patient is resting in bed at time of consult with pneumatic pumps on legs and cryo cuff right knee. Objective: General Observation: Patient alert and ready to mobilize Mental Status: A&O x3 Pain: 3/10 right knee ROM: Right Upper Extremity: Within normal limits Left Upper Extremity: Within normal limits Right Lower Extremity: Within normal limits, right knee AROM 0-80 degrees Left Lower Extremity: Within normal limits Strength: Right Upper Extremity: Grossly 5/5 Left Upper Extremity: Grossly 5/5 Right Lower Extremity: Grossly 4/5 secondary to post op state Left Lower Extremity: Grossly 5/5 Sensation: Intact as to pain and pressure on bilateral lower extremities. Bed Mobility/Transfers: Supine to sit: Independent Sit to supine: Independent Sit to stand: SBA Stand to sit: SBA Gait: Ambulated 110ft x2 with FWW, SBA - able to use step through gait, cues for right knee flexion Stairs: Step to gait with stairs using single rail x 5 Balance: Static Sitting: Normal Dynamic Sitting: Normal Static Standing: Good Dynamic Standing: Fair Therapeutic Activity (80258) dynamic movement and functional strengthening to improve physical performance: 25 minutes Ambulation with FWW Instruction and demonstration of safe stair ambulation Seated LAQ Ankle pumps Supine quad set Supine heel slide Seated january Provided handout for exercises, reminded to schedule outpatient PT Special Tests: Mobility Limitations Standardized Measure [facility] AM-PAC 6 clicks Basic Mobility Inpatient Short Form: Raw Score: 21 CMS Score: 29% Informed Consent/Education: Patient instructed in purpose of PT consult and plan of care. Assessment: Celso is doing well this morning with 3/10 pain in right knee. He was able to ambulate with FWW and strep through gait 110 feet x2. No reports of fatigue. A little dizzy feeling at end of session. He demonstrates good understanding of properly using step to gait on stairs. Independent with bed mobility. Instructed patient in HEP for light quad activation and ROM. Currently demonstrating right knee AROM of 0-80 degrees. Patient is safe to be discharged home with outpatient PT when medically ready. Patient presents with clinical signs and symptoms consistent with current/admitting diagnoses that have resulted to mobility limitations, gait instability, generalized weakness, and impairment of motor control as demonstrated by the following impairment level findings: 1. Decreased strength to right leg major muscle groups 2. Impaired activity tolerance 3. Limitation of joint range of motion in right knee Impairments are contributing to the following functional limitations: 1. Inability to safely ambulate without assistive device and physical assistance 2. Increase completion time for mobility ADL performance 3. Increased fall risk 4. Inability to negotiate steps alone safely Patient is assessed as a Low complexity based on the following: History: 58 year old male with impairment level findings, functional limitations, and past medical history as indicated above Examination: Demonstrable impairment in strength, balance, and mobility level with underlying impairments and functional limitations as documented above Presentation: Stable Decision Making: Low complexity Goals: Goals x1 week 1. Independent gait on level surface with use of least restrictive device for at least 300 feet without report of pain nor dyspnea 2. Good static and dynamic standing balance/tolerance 3. Independent with home exercise program 4. Independent stair negotiation while holding onto single rail for at least 13 steps without report of pain nor dyspnea Plan of Care/Treatment Plan: 1-2x/day, 7 days/week x1 week. Plan of care has been reviewed with the AUDIO VISUAL COLLECTIONS COORDINATOR providing the service under Physical Therapy direction. Initiate Physical Therapy intervention for strengthening, bed mobility, transfers, gait, stairs, balance training, and use of assistive device. Discharge Plan DISCHARGE RECOMMENDATIONS: Home with outpatient PT TREATMENT CODE/TIME: 9:57-10:38 (41 minutes), [id number], [id number] Thank you for the opportunity to participate in the care of this patient. Viktoriya Lennon, PT, DPT, OCS [facility] [place], [place]
[2023-12-12 11:18] VITALS: BP 119/71; PULSE 91; RESP 16; TEMP 37.2; O2SAT 92
== END 2023-12-12 13:31 | disposition home or self-care (01) ==
LOC: SUR 17:00 → MS 18:52 → SUR 12-12 07:52 → MS 12-12 07:54
PROVIDERS: Admitting Provider Student in an Organized Health Care Education/Training Program; PCP Family Medicine; Visit Provider Student in an Organized Health Care Education/Training Program
PROC: (CPT 27447; principal; 2023-12-11 10:30)
DX: M17.11 Unilateral primary osteoarthritis, right knee (principal); E66.9 Obesity, unspecified; E11.9 Type 2 diabetes mellitus without complications; Z68.41 Body mass index [BMI] 40.0-44.9, adult; H90.3 Sensorineural hearing loss, bilateral; M10.9 Gout, unspecified; F32.2 Major depressive disorder, single episode, severe without psychotic features; G47.33 Obstructive sleep apnea (adult) (pediatric); F43.12 Post-traumatic stress disorder, chronic; I10 Essential (primary) hypertension; K76.0 Fatty (change of) liver, not elsewhere classified
CPT/HCPCS: 27447; 76942; 96365; 96366; 97161; 97530; C1776; G0378; J0171; J0690; J1100; J1170; J1790; J1815; J2250; J2310; J2371; J2401; J2405; J2704; J3010

== ENCOUNTER 2023-12-24 14:06 | Outpatient (CLI) | payer BC, SELFPAY ==
--- NOTE | 2023-12-24 10:15 | DI.RAD_ITS ---
Exam(s) XR KNEE RT 1V XR STANDING ALIGNMENT EXAM: XR STANDING ALIGNMENT CLINICAL HISTORY: 1ST POST OP S/P R TKA. TECHNIQUE: 2D digital imaging was performed. Standing AP views were performed from the pelvis throu gh the ankles. COMPARISON: CR XR STANDING ALIGNMENT from 11/23/2023 CR XR KNEE RT 1V from 12/24/2023 FINDINGS: BONES: No acute fracture is present. No bony destructive lesion is seen. Leg length discrepancy: The left femoral head projects a few millimeter superior to the right. JOINTS: Knees: Status post placement of a right total knee prosthesis since the previous exam. The a lignment appears satisfactory. No abnormal surrounding bony lucencies. Moderate degenerative change s of the medial femoral tibial joint of the left knee. The ankle joints are unremarkable. The hip joints are unremarkable. SOFT TISSUE: Normal. IMPRESSION: Moderate degenerative changes left knee. Unremarkable right total knee prosthesis. No significant leg length discrepancy. DATA REPOSITORY: RADIATION DOSE DELIVERED:
== END 2023-12-24 14:07 | disposition home or self-care (01) ==
LOC: DIORS 14:06
PROVIDERS: PCP Family Medicine; Visit Provider Student in an Organized Health Care Education/Training Program
DX: Z96.651 Presence of right artificial knee joint (principal); Z47.1 Aftercare following joint replacement surgery
CPT/HCPCS: 73560; 77073

== ENCOUNTER 2024-08-29 16:58 | Outpatient (REF) | payer BC, SELFPAY ==
[2024-08-31 10:42] LABS: Campylobacter PCR Negative (Negative); Salmonella PCR Negative (Negative); Shiga Toxin PCR Negative (Negative); Shigella/Enteroinvasive Ecoli Negative (Negative)
== END 2024-08-29 16:59 | disposition home or self-care (01) ==
LOC: LBN 16:58
PROVIDERS: PCP Family Medicine; Visit Provider Nurse Practitioner Family
DX: R19.7 Diarrhea, unspecified (principal)
CPT/HCPCS: 87505; 87177

== ENCOUNTER 2024-10-17 01:36 | Outpatient (CLI) | payer BC, SELFPAY ==
[2024-10-17 11:30] LABS: Hemoglobin A1C 5.2 % (<5.7)
[2024-10-17 12:24] LABS: ALT 22 U/L (16-63); AST 13 U/L (15-37); Albumin 3.9 g/dL (3.4-5.0); Alkaline Phosphatase 109 U/L (46-116); Anion Gap 6.9 mmol/L (3-11); BUN 16 mg/dL (7-18); Bilirubin, Total 1.09 mg/dL (0.2-1.0); CO2 30.1 mmol/L (21.0-32.0); Calcium 8.8 mg/dL (8.5-10.1); Chloride 108 mmol/L (98-107); Estimated GFR 85.63 (mL/min/1.73m2); Glucose 93 mg/dL (74-106); Potassium 4.3 mmol/L (3.5-5.1); Sodium 145 mmol/L (136-145); Total Protein 7.2 g/dL (6.4-8.2); Uric Acid 4.9 mg/dL (3.5-7.2)
[2024-10-17 12:59] LABS: Vitamin D 25 Total 19.4 ng/mL (30-100)
== END 2024-10-17 01:37 | disposition home or self-care (01) ==
PROVIDERS: PCP Family Medicine; Visit Provider Family Medicine
DX: E66.01 Morbid (severe) obesity due to excess calories (principal); M1A.9XX0 Chronic gout, unspecified, without tophus (tophi); M10.9 Gout, unspecified; Z00.00 Encounter for general adult medical examination without abnormal findings; I10 Essential (primary) hypertension; R73.01 Impaired fasting glucose; Z68.39 Body mass index [BMI] 39.0-39.9, adult
CPT/HCPCS: 36415; 80053; 82306; 83036; 84550

== ENCOUNTER 2025-02-20 22:15 | Outpatient (REF) | payer BC, SELFPAY ==
[2025-02-20 22:14] LABS: Vitamin D 25 Total 25 ng/mL (30-100)
== END 2025-02-20 22:16 | disposition home or self-care (01) ==
LOC: LBN 22:15
PROVIDERS: PCP Family Medicine; Visit Provider Family Medicine
DX: E66.01 Morbid (severe) obesity due to excess calories (principal); Z68.39 Body mass index [BMI] 39.0-39.9, adult
CPT/HCPCS: 82306

== ENCOUNTER 2025-09-18 03:45 | Outpatient (CLI) | payer BC, SELFPAY ==
[2025-09-18 07:54] LABS: Abs Immature Grans 0.05 10^3/uL (0.0-0.06); HCT 48.3 % (40.0-50.0); HGB 15.9 g/dL (13.5-17.5); Immature Grans % 0.9 %; MCH 29.1 pg (27.0-33.0); MCHC 32.9 % (32.0-36.0); MCV 88 fL (80-95); MPV 9.4 fL (8.0-11.0); Platelet Count 230 10^3/uL (130-400); RBC 5.47 10^6/uL (4.36-5.78); RDW 14.0 % (11.8-14.1); RDW-SD 45.3 fL; WBC 5.68 10^3/uL (4.4-10.8)
[2025-09-18 08:58] LABS: ALT 17 U/L (16-63); AST 9 U/L (15-37); Albumin 4.0 g/dL (3.4-5.0); Alkaline Phosphatase 116 U/L (46-116); Anion Gap 6.6 mmol/L (3-11); BUN 15 mg/dL (7-18); Bilirubin, Total 1.7 mg/dL (0.2-1.0); CO2 29.4 mmol/L (21.0-32.0); Calcium 8.8 mg/dL (8.5-10.1); Chloride 102 mmol/L (98-107); Cholesterol 121 mg/dL (<200); Glucose 86 mg/dL (74-106); HDL Cholesterol 41 mg/dL (>or=40); Potassium 4.2 mmol/L (3.5-5.1); Sodium 138 mmol/L (136-145); Total Protein 7.0 g/dL (6.4-8.2); Vitamin D 25 Total 30 ng/mL (30-100)
[2025-09-18 09:07] LABS: Uric Acid 3.6 mg/dL (3.5-7.2)
[2025-09-18 21:09] LABS: PSA, Screening 1.3 ng/mL (<=4.5)
[2025-09-18 21:48] LABS: Hepatitis C Ab w Rflx HCV PCR Negative (Negative)
[2025-09-18 21:50] LABS: HIV-1/2 Ag & Ab Screen Negative (Negative)
== END 2025-09-18 03:46 | disposition home or self-care (01) ==
LOC: LBO 03:45
PROVIDERS: PCP Family Medicine; Visit Provider Family Medicine
DX: E66.812 Obesity, class 2 (principal); E66.01 Morbid (severe) obesity due to excess calories; Z68.36 Body mass index [BMI] 36.0-36.9, adult; M1A.9XX0 Chronic gout, unspecified, without tophus (tophi); M10.9 Gout, unspecified; Z12.5 Encounter for screening for malignant neoplasm of prostate; Z11.59 Encounter for screening for other viral diseases; Z00.00 Encounter for general adult medical examination without abnormal findings; I10 Essential (primary) hypertension; Z13.6 Encounter for screening for cardiovascular disorders; Z11.4 Encounter for screening for human immunodeficiency virus [HIV]
CPT/HCPCS: 36415; 80053; 80061; 82306; 84153; 86803; 87389; 84550; 85025